=== PATIENT | female | born 1990 | race Caucasian/White ===

== ENCOUNTER → 2016-12-20 | Outpatient (CLI) | payer OTHER ==
[2016-12-20 09:31] LABS: CHLORIDE,CL 110 mmol/L (98-110); SODIUM,NA 140 mmol/L (136-146)
== END | disposition home or self-care (01) ==
LOC: MW.CHOBGYN 07:44
PROVIDERS: ATTEND Advanced Practice Midwife
DX: O13.9 Gestational [pregnancy-induced] hypertension without significant proteinuria, unspecified trimester (principal)
CPT/HCPCS: 36415; 80053; 82570; 82950; 84156; 84550; 85027; 86850

== ENCOUNTER → 2016-12-31 | Outpatient (CLI) | payer OTHER ==
[2016-12-31 09:06] LABS: CHLORIDE,CL 111 mmol/L (98-110); SODIUM,NA 139 mmol/L (136-146)
== END ==
LOC: MW.LAB 08:00
PROVIDERS: ATTEND Advanced Practice Midwife
DX: O13.9 Gestational [pregnancy-induced] hypertension without significant proteinuria, unspecified trimester (principal)
CPT/HCPCS: 36415; 80053; 82570; 84156; 85025

== ENCOUNTER 2017-02-12 19:38 | Observation (INO) | payer OTHER ==
[2017-02-12] MEDS ORDERED: Acetaminophen/oxyCODONE 325-5 MG Tab PO ONE (20:55)
[2017-02-12 22:00] LABS: CHLORIDE,CL 107 mmol/L (98-110); SODIUM,NA 136 mmol/L (136-146)
[2017-02-12] MEDS ORDERED: Acetaminophen/Butalbital/Caffeine 325-50-40 MG Tab PO ONE (22:09)
[2017-02-12] MEDS ORDERED: Ondansetron 4 MG Tab.DIS PO ONE (22:11)
[2017-02-13] MEDS: NIFEdipine 30 MG Tab.ER PO SCH (11:01)
--- NOTE | 2017-02-13 11:18 | US ---
EXAMINATION: Transabdominal obstetric ultrasound HISTORY: Positioning COMPARISON: 02/12/2017 TECHNIQUE: Grayscale and spectral Doppler images obtained. FINDINGS: There is a single live intrauterine noted in a cephalic position. The placenta i s anterior. heart rate is 131 bpm. IMPRESSION: Single live intrauterine in a cephalic position.
[2017-02-14] MEDS ORDERED: Misoprostol 200 MCG Tab PO PRN (08:58)
[2017-02-14] MEDS ORDERED: Sodium Chloride 0.9% 2.5 ML Syringe FLUSH PRN (08:58)
[2017-02-14] MEDS ORDERED: Butorphanol 1 MG/ML SDV IVPUSH PRN (08:58)
[2017-02-14] MEDS ORDERED: Lidocaine 1% 50 ML MDV INJECT PRN (08:58)
[2017-02-14] MEDS ORDERED: Terbutaline 1 MG/ML SDV SUBCUT PRN (08:58)
[2017-02-14] MEDS ORDERED: Sodium Chloride 0.9% 10 ML Syringe FLUSH PRN (08:58)
[2017-02-14] MEDS ORDERED: Nalbuphine 10 MG/1 ML Vial IVPUSH PRN ×2 (08:58→19:10)
[2017-02-14] MEDS ORDERED: Water For Irrigation,Sterile 1,000 ML Container IRR PRN (08:58)
[2017-02-14] MEDS ORDERED: Methylergonovine 0.2 MG/1 ML Amp IM PRN (08:58)
[2017-02-14] MEDS ORDERED: Carboprost Tromethamine 250 MCG/1 ML Amp IM PRN (08:58)
[2017-02-14] MEDS ORDERED: Lactated Ringers 1,000 ML IV SCH (09:00)
--- NOTE | 2017-02-14 09:21 | PCM.LDHP ---
L&D History of Present Illness - General Date of Service: 02/14/17 Admit Problem/Dx: Patient Status Order with Admit Dx/Problem 02/12/17 20:30 Patient Status [ADT] Routine 02/14/17 08:58 Patient Status [ADT] Routine Admission Diagnosis/Problem Admission Diagnosis/Problem 02/14/17 09:16 26 yo EDC 03/08/2017 36 6/7 wks, B+, Rubella equviocal, GBS positive, IOL due to symptomatic PIH, elevated BP 142/110 in clinic, proteinuria, and headache. Co-mngt with Dr Elizondo. 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: - Past Surgical History HEENT Surgical History: Reports: Oral Surgery Social & Family History - Family History Family Medical History: Noncontributory - Tobacco Use Smoking Status *Q: Never Smoker - Recreational Drug Use Recreational Drug Use: No H&P Review of Systems - Review of Systems: Review Of Systems: See Below General: Reports: No Symptoms HEENT: Reports: No Symptoms Pulmonary: Reports: No Symptoms Cardiovascular: Reports: No Symptoms Gastrointestinal: Reports: No Symptoms Genitourinary: Reports: No Symptoms Musculoskeletal: Reports: No Symptoms Skin: Reports: No Symptoms Psychiatric: Reports: No Symptoms Neurological: Reports: No Symptoms, Headache (improved with bedrest and Fioricet.) Hematologic/Lymphatic: Reports: No Symptoms Immunologic: Reports: No Symptoms L&D Exam - Exam Exam: See Below - Vital Signs Vital Signs: Last Vital Signs Temp Pulse Resp BP 132/78 02/13/17 11:01 Pulse Ox Weight: 99.337 kg - OB Specific Fundal Height In cm: 36 Movement: Active Heart Tones: Present Presentation: Vertex Estimated Weight: 3000 - Kelley Score Kelley Score Cervix Position: Anterior Kelley Score Consistency: Soft Kelley Score Effacement: 31-50% Kelley Score Dilation: 1-2 cm Kelley Score 's Station: -2 Kelley Score Total: 7 - Exam General: Alert, Oriented, Cooperative HEENT: Hearing Intact Lungs: Normal Respiratory Effort Abdomen: Soft (gravid) Rectal Exam: Deferred Genitourinary: Normal bimanual exam, Cervical dilitation (1cm) Back Exam: Full Range of Motion Extremities: Normal Inspection, Normal Pulses Skin: Warm, Dry, Intact Neurological: Cranial Nerves Intact, Normal Speech, Normal Tone Psychiatric: Alert, Normal Affect, Normal Mood - Patient Data Lab Results Last 24 hrs: Laboratory Results - last 24 hr 02/13/17 Range/Units 22:30 Ur Collection Duration 24 Urine Total Volume 3775 H (800-1800) Ur Total Protein Conc < 6.8 (0-14) mg/dL Ur Total Protein 24 Hr 256.7 mg/24HRS Result Diagrams: 02/12/17 21:05 02/12/17 21:05 - Problem List (1) Supervision of normal IUP (intrauterine ) in primigravida SNOMED Code(s): 08380710, 023203951, 495169161, 094334146 ICD Code: Z34.00 - ENCNTR FOR SUPRVSN OF NORMAL FIRST , UNSP TRIMESTER Status: Acute Priority: High Current Visit: Yes Qualifiers: Trimester: third trimester Qualified Code(s): Z34.03 - Encounter for supervision of normal first , third trimester (2) induced hypertension, delivered, current hospitalization SNOMED Code(s): 57272126 ICD Code: O13.4 - GESTATNL HTN WITHOUT SIGNIFICANT PROTEIN, COMP CHILDBIRTH Status: Acute Priority: High Current Visit: Yes Problem List Initiated/Reviewed/Updated: Yes Orders Last 24hrs: Active Orders 24 hr Category Date Time Status Patient Status [ADT] Routine ADT 02/14/17 08:58 Active Bedrest Bathroom Privileges [RC] ASDIRECTED Care 02/14/17 08:58 Active Communication Order [RC] ASDIRECTED Care 02/14/17 08:58 Active Communication Order [RC] ASDIRECTED Care 02/14/17 08:58 Active Communication Order [RC] ASDIRECTED Care 02/14/17 08:58 Active Heart Tones [RC] CONTINUOUS Care 02/14/17 08:58 Active Non Stress Test [RC] PER UNIT ROUTINE Care 02/14/17 08:58 Active May Shower [RC] ASDIRECTED Care 02/14/17 08:58 Active Notify Provider [RC] PRN Care 02/14/17 08:58 Active Notify Provider [RC] PRN Care 02/14/17 08:58 Active Notify Provider [RC] PRN Care 02/14/17 08:58 Active Notify Provider [RC] STAT Care 02/14/17 08:58 Active Oxygen Therapy [RC] ASDIRECTED Care 02/14/17 08:58 Active Peripheral IV Care [RC] . DIRECTED Care 02/14/17 08:58 Active Up ad Piedad [RC] ASDIRECTED Care 02/14/17 08:58 Active Vaginal Exam [RC] PRN Care 02/14/17 08:58 Active Vaginal Exam [RC] PRN Care 02/14/17 08:58 Active Vital Signs [RC] PER UNIT ROUTINE Care 02/14/17 08:58 Active Vital Signs [RC] PER UNIT ROUTINE Care 02/14/17 08:58 Active Regular Diet [DIET] Diet 02/13/17 Lunch Active CBC W/O DIFF,HEMOGRAM [HEME] Routine Lab 02/14/17 08:58 Ordered TYPE AND SCREEN [BBK] Routine Lab 02/14/17 08:58 Ordered Butorphanol [Stadol] Med 02/14/17 08:58 Active 1 mg IVPUSH Q1H PRN Carboprost Tromethamine [Hemabate DS] Med 02/14/17 08:58 Active 250 mcg IM ASDIRECTED PRN Lactated Ringers [Ringers, Lactated] 1,000 ml Med 02/14/17 09:00 Active IV ASDIRECTED Lidocaine 1% [Xylocaine 1%] Med 02/14/17 08:58 Active 50 ml INJECT .ONCE PRN Methylergonovine [Methergine] Med 02/14/17 08:58 Active 0.2 mg IM ASDIRECTED PRN Misoprostol [Cytotec] Med 02/14/17 08:58 Active 200 mcg PO .ONCE PRN Misoprostol [Cytotec] Med 02/14/17 10:00 Active 25 mcg VAG .ONCE Misoprostol [Cytotec] Med 02/14/17 14:00 Active 25 mcg VAG Q4H PRN NIFEdipine [Procardia XL] Med 02/13/17 11:00 Active 60 mg PO DAILY Nalbuphine [Nubain] Med 02/14/17 08:58 Active 10 mg IVPUSH Q1H PRN Oxytocin/Lactated Ringers [Pitocin in LR 30 Units/500 Med 02/14/17 20:30 Active ML] 30 unit in 500 ml IV ASDIRECTED Oxytocin/Lactated Ringers [Pitocin in LR 30 Units/500 Med 02/15/17 09:00 Active ML] 30 unit in 500 ml IV TITRATE Sodium Chloride 0.9% [Saline Flush] Med 02/14/17 08:58 Active 10 ml FLUSH ASDIRECTED PRN Sodium Chloride 0.9% [Saline Flush] Med 02/14/17 08:58 Active 2.5 ml FLUSH ASDIRECTED PRN Terbutaline [Brethine] Med 02/14/17 08:58 Active 0.25 mg SUBCUT ASDIRECTED PRN Water For Irrigation,Sterile [Sterile Water for Med 02/14/17 08:58 Active Irrigation] 1,000 ml IRR ASDIRECTED PRN Scalp Electrode [WOMSER] Per Unit Routine Oth 02/14/17 08:58 Ordered Medication Administration Instruction [OM.PC] Q3H Oth 02/14/17 09:00 Ordered Peripheral IV Insertion Adult [OM.PC] Routine Ot 02/14/17 08:58 Ordered Medication Orders Butorphanol Tartrate (Stadol) 1 mg IVPUSH Q1H PRN PRN Reason: Pain Carboprost Tromethamine (Hemabate Ds) 250 mcg IM ASDIRECTED PRN PRN Reason: Post Hemorrhage Lactated Ringer's (Ringers, Lactated) 1,000 mls @ 150 mls/hr IV ASDIRECTED GRACIELA Oxytocin/Lactated Ringer's (Pitocin In Lr 30 Units/500 Ml) 30 unit in 500 mls @ 500 mls/hr IV ASDIRECTED GRACIELA PRN Reason: 500 MUNITS/MIN Stop: 02/14/17 21:29 Oxytocin/Lactated Ringer's (Pitocin In Lr 30 Units/500 Ml) 30 unit in 500 mls @ 2 mls/hr IV TITRATE GRACIELA; 2 MUNITS/MIN PRN Reason: Protocol Lidocaine HCl (Xylocaine 1%) 50 ml INJECT .ONCE PRN PRN Reason: Laceration repair Methylergonovine Maleate (Methergine) 0.2 mg IM ASDIRECTED PRN PRN Reason: Post Hemorrhage Misoprostol (Cytotec) 200 mcg PO .ONCE PRN PRN Reason: Post Hemorrhage Misoprostol (Cytotec) 25 mcg VAG .ONCE GRACIELA Misoprostol (Cytotec) 25 mcg VAG Q4H PRN PRN Reason: Cervical Ripening Stop: 02/15/17 18:01 Nalbuphine HCl (Nubain) 10 mg IVPUSH Q1H PRN PRN Reason: Pain (severe 7-10) Stop: 02/14/17 10:59 Nifedipine (Procardia Xl) 60 mg PO DAILY GRACIELA Last Admin: 02/13/17 11:01 Dose: 60 mg Sodium Chloride (Saline Flush) 10 ml FLUSH ASDIRECTED PRN PRN Reason: Keep Vein Open Sodium Chloride (Saline Flush) 2.5 ml FLUSH ASDIRECTED PRN PRN Reason: Keep Vein Open Sterile Water (Sterile Water For Irrigation) 1,000 ml IRR ASDIRECTED PRN PRN Reason: delivery Terbutaline Sulfate (Brethine) 0.25 mg SUBCUT ASDIRECTED PRN PRN Reason: Tacysystole Assessment/Plan Comment:: IOL A: 26 yo EDC 03/08/2017 36 6/7 wks, B+, Rubella equviocal, GBS positive, IOL due to symptomatic PIH, elevated BP 142/110 in clinic, proteinuria, and headache. Co-mngt with Dr Elizondo. P: Admit to L&D, Cytotec per protocol then pitocin. Epidural prn, anticipate .
[2017-02-14] MEDS: Misoprostol 25 MCG (1/4 of 100 MCG) Tab PO SCH ×3 (10:13→17:56)
[2017-02-14] MEDS: Misoprostol 25 MCG (1/4 of 100 MCG) Tab VAG SCH ×2 (10:13→17:57)
[2017-02-14] MEDS: NIFEdipine 30 MG Tab.ER PO SCH ×2 (10:21→10:33)
[2017-02-14] MEDS ORDERED: Misoprostol 25 MCG (1/4 of 100 MCG) Tab VAG PRN (14:00)
[2017-02-14] MEDS ORDERED: Nalbuphine 20 MG/1 ML Amp IVPUSH PRN (19:13)
[2017-02-14] MEDS ORDERED: Nalbuphine 10 MG/1 ML Vial ONE (19:16)
[2017-02-14] MEDS ORDERED: Oxytocin/Lactated Ringers 30 UNIT/500 ML BAG IV SCH ×2 (20:30→22:30)
[2017-02-15] MEDS: NIFEdipine 30 MG Tab.ER PO SCH (08:57)
[2017-02-15 08:58] VITALS: BP 150/94
[2017-02-15] MEDS ORDERED: Oxytocin/Lactated Ringers 30 UNIT/500 ML BAG IV SCH (09:00)
== END 2017-02-15 14:00 | disposition home or self-care (01) ==
LOC: MW.OBCHECK 19:38 → MW.OB 19:42 → MW.OBCHECK 02-14 08:58 → MW.OB 02-14 08:58
PROVIDERS: ADMIT Obstetrics & Gynecology; ATTEND Obstetrics & Gynecology
DX: O13.4 Gestational [pregnancy-induced] hypertension without significant proteinuria, complicating childbirth (principal); Z3A.36 36 weeks gestation of pregnancy
CPT/HCPCS: 36415; 59025; 76815; 80053; 81003; 84156; 84550; 85025; 85027; 86850; 86900; 86901; 96361; 96374; A9270; G0378; J2300; J7120; 76816

== ENCOUNTER 2017-02-23 00:13 | Inpatient (IN) | payer OTHER ==
[2017-02-23] MEDS ORDERED: Terbutaline 1 MG/ML SDV SUBCUT PRN (21:38)
[2017-02-23] MEDS ORDERED: Sodium Chloride 0.9% 10 ML Syringe FLUSH PRN (21:38)
[2017-02-23] MEDS ORDERED: Misoprostol 200 MCG Tab PO PRN (21:38)
[2017-02-23] MEDS ORDERED: Methylergonovine 0.2 MG/1 ML Amp IM PRN (21:38)
[2017-02-23] MEDS ORDERED: Sodium Chloride 0.9% 2.5 ML Syringe FLUSH PRN (21:38)
[2017-02-23] MEDS ORDERED: Lidocaine 1% 50 ML MDV INJECT PRN (21:38)
[2017-02-23] MEDS ORDERED: Water For Irrigation,Sterile 1,000 ML Container IRR PRN (21:38)
[2017-02-23] MEDS ORDERED: Carboprost Tromethamine 250 MCG/1 ML Amp IM PRN (21:38)
[2017-02-23] MEDS ORDERED: Nalbuphine 10 MG/1 ML Vial IVPUSH PRN (21:38)
[2017-02-23] MEDS ORDERED: Oxytocin/Lactated Ringers 30 UNIT/500 ML BAG IV SCH ×2 (21:45)
[2017-02-23] MEDS ORDERED: Misoprostol 25 MCG (1/4 of 100 MCG) Tab VAG SCH (21:45)
[2017-02-23] MEDS ORDERED: Ampicillin 2 GM in Sodium Chloride 0.9% 100 ML IV ONE (22:00)
[2017-02-23] MEDS: Lactated Ringers 1,000 ML IV SCH (22:25)
[2017-02-23] MEDS: Misoprostol 25 MCG (1/4 of 100 MCG) Tab PO SCH (22:31)
[2017-02-23] MEDS: Misoprostol 25 MCG (1/4 of 100 MCG) Tab VAG PRN (22:37)
[2017-02-23 22:43] LABS: CHLORIDE,CL 108 mmol/L (98-110); SODIUM,NA 137 mmol/L (136-146)
[2017-02-24] MEDS: Misoprostol 25 MCG (1/4 of 100 MCG) Tab PO SCH ×2 (04:21→12:06)
[2017-02-24] MEDS: Misoprostol 25 MCG (1/4 of 100 MCG) Tab VAG PRN (04:21)
[2017-02-24] MEDS: Lactated Ringers 1,000 ML IV SCH ×4 (06:59→20:57)
--- NOTE | 2017-02-24 08:59 | PCM.LDHP ---
L&D History of Present Illness - General Date of Service: 02/24/17 Admit Problem/Dx: Patient Status Order with Admit Dx/Problem 02/23/17 21:38 Patient Status [ADT] Routine Admission Diagnosis/Problem Admission Diagnosis/Problem 02/24/17 08:54 26 yo EDC 03/08/2017 38 1/7wks, B=, R-equivocal, GBS pos, H/H 12.7/37.1, PLT 356, ALT/AST , RPCR 0.11, IOL due to CHTN w/PIH symptoms. 02/24/17 08:56 Source of Information: Patient History Limitations: Reports: No Limitations - History of Present Illness Improves with: Reports: None Worsens with: Reports: None Associated Symptoms: Reports: N - Related Data Allergies/Adverse Reactions: Allergies Allergy/AdvReac Type Severity Reaction Status Date / Time No Known Allergies Allergy Verified 02/12/17 20:29 Home Medications: Home Meds NIFEdipine [Procardia XL] 2 tab PO DAILY 02/13/17 [History] Past Medical History HEENT History: Reports: Other (See Below) Other HEENT History: Wearing eyeglasses for nearsightedness. 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 Social & Family History - Family History Family Medical History: Noncontributory HEENT: Reports: Cataract Cardiac: Reports: Arrhythmia, Heart Failure, Hypertension, Other (See Below) Respiratory: Reports: Sleep Apnea GI: Reports: None : Reports: Renal Calculus OBGYN: Reports: Musculoskeletal: Reports: Gout Neurological: Reports: Dementia Psychiatric: Reports: None Endocrine/Metabolic: Reports: Diabetes, type II Hematologic: Reports: None Immunologic: Reports: None Dermatologic: Reports: Eczema Oncologic: Reports: Pancreatic - Tobacco Use Smoking Status *Q: Never Smoker - Caffeine Use Caffeine Use: Reports: None - Recreational Drug Use Recreational Drug Use: No H&P Review of Systems - Review of Systems: Review Of Systems: See Below General: Reports: No Symptoms HEENT: Reports: No Symptoms Pulmonary: Reports: No Symptoms Cardiovascular: Reports: No Symptoms Gastrointestinal: Reports: No Symptoms Genitourinary: Reports: No Symptoms Musculoskeletal: Reports: No Symptoms Skin: Reports: No Symptoms Psychiatric: Reports: No Symptoms Neurological: Reports: No Symptoms Hematologic/Lymphatic: Reports: No Symptoms Immunologic: Reports: No Symptoms L&D Exam - Exam Exam: See Below - Vital Signs Vital Signs: Last Vital Signs Temp Pulse Resp BP 148/91 H 02/24/17 08:52 Pulse Ox Weight: 99.337 kg - OB Specific Contraction Intensity: Mild Movement: Active Heart Tones: Present Heart Tones per Min: 120 Heart Rate (FHR) Variability: Moderate (6-25 bmp) Presentation: Vertex - Kelley Score Kelley Score Cervix Position: Anterior Kelley Score Consistency: Soft Kelley Score Effacement: 51-70% Kelley Score Dilation: 1-2 cm Kelley Score 's Station: -2 Kelley Score Total: 8 - Exam General: Alert, Oriented, Cooperative HEENT: Hearing Intact Lungs: Normal Respiratory Effort Abdomen: Soft (gravid) Rectal Exam: Deferred Genitourinary: Normal bimanual exam, Cervical fluid (AROM clear) Back Exam: Full Range of Motion Extremities: Normal Inspection Skin: Warm Neurological: Cranial Nerves Intact Psychiatric: Alert, Normal Affect, Normal Mood - Patient Data Lab Results Last 24 hrs: Laboratory Results - last 24 hr 02/23/17 02/23/17 02/23/17 Range/Units 22:11 22:11 22:11 WBC 10.71 (4.0-11.0) K/uL RBC 4.32 (4.30-5.90) M/uL Hgb 12.7 (12.0-16.0) g/dL Hct 37.1 (36.0-46.0) % MCV 85.9 (80.0-98.0) fL MCH 29.4 (27.0-32.0) pg MCHC 34.2 (31.0-37.0) g/dL RDW Std Deviation 42.0 (28.0-62.0) fl RDW Coeff of Efrain 14 (11.0-15.0) % Plt Count 356 (150-400) K/uL MPV 9.90 (7.40-12.00) fL Nucleated RBC % 0.0 /100WBC Nucleated RBCs # 0 K/uL Sodium 137 (136-146) mmol/L Potassium 3.8 (3.5-5.1) mmol/L Chloride 108 (98-110) mmol/L Carbon Dioxide 20 L (21-31) mmol/L BUN 9 (6.0-23.0) mg/dL Creatinine 0.7 (0.6-1.5) mg/dL Est Cr Clr Drug Dosing 117.39 mL/min Estimated GFR (MDRD) > 60.0 ml/min Glucose 113 H (60-110) mg/dL Uric Acid (2.1-6.2) mg/dL Calcium 8.5 L (8.8-10.8) mg/dL Total Bilirubin 0.4 (0.1-1.5) mg/dL AST 16 (5-40) IU/L ALT 18 (8-54) IU/L Alkaline Phosphatase 194 H (40-150) Total Protein 6.3 (6.0-8.0) g/dL Albumin 3.2 L (3.5-5.0) g/dL Globulin 3.1 (2.0-3.5) g/dL Albumin/Globulin Ratio 1.0 L (1.3-2.8) Ur Random Creatinine mg/dL U Random Total Protein mg/dL Protein/Creatinin Ratio Blood Type B POSITIVE Antibody Screen NEGATIVE 02/23/17 02/23/17 Range/Units 22:11 23:00 WBC (4.0-11.0) K/uL RBC (4.30-5.90) M/uL Hgb (12.0-16.0) g/dL Hct (36.0-46.0) % MCV (80.0-98.0) fL MCH (27.0-32.0) pg MCHC (31.0-37.0) g/dL RDW Std Deviation (28.0-62.0) fl RDW Coeff of Efrain (11.0-15.0) % Plt Count (150-400) K/uL MPV (7.40-12.00) fL Nucleated RBC % /100WBC Nucleated RBCs # K/uL Sodium (136-146) mmol/L Potassium (3.5-5.1) mmol/L Chloride (98-110) mmol/L Carbon Dioxide (21-31) mmol/L BUN (6.0-23.0) mg/dL Creatinine (0.6-1.5) mg/dL Est Cr Clr Drug Dosing mL/min Estimated GFR (MDRD) ml/min Glucose (60-110) mg/dL Uric Acid 4.6 (2.1-6.2) mg/dL Calcium (8.8-10.8) mg/dL Total Bilirubin (0.1-1.5) mg/dL AST (5-40) IU/L ALT (8-54) IU/L Alkaline Phosphatase (40-150) Total Protein (6.0-8.0) g/dL Albumin (3.5-5.0) g/dL Globulin (2.0-3.5) g/dL Albumin/Globulin Ratio (1.3-2.8) Ur Random Creatinine 154.3 mg/dL U Random Total Protein 17.6 mg/dL Protein/Creatinin Ratio 0.1 Blood Type Antibody Screen Result Diagrams: 02/23/17 22:11 02/23/17 22:11 - Problem List (1) induced hypertension, delivered, current hospitalization SNOMED Code(s): 35394449 ICD Code: O13.4 - GESTATNL HTN WITHOUT SIGNIFICANT PROTEIN, COMP CHILDBIRTH Status: Acute Priority: High Current Visit: No (2) Supervision of normal IUP (intrauterine ) in primigravida SNOMED Code(s): 87902165, 016856435, 155505919, 927218294 ICD Code: Z34.00 - ENCNTR FOR SUPRVSN OF NORMAL FIRST , UNSP TRIMESTER Status: Acute Priority: High Current Visit: No Qualifiers: Trimester: third trimester Problem List Initiated/Reviewed/Updated: Yes Orders Last 24hrs: Active Orders 24 hr Category Date Time Status Patient Status [ADT] Routine ADT 02/23/17 21:38 Active Bedrest Bathroom Privileges [RC] ASDIRECTED Care 02/23/17 21:38 Active Communication Order [RC] ASDIRECTED Care 02/23/17 21:38 Active Communication Order [RC] ASDIRECTED Care 02/23/17 21:38 Active Communication Order [RC] ASDIRECTED Care 02/23/17 21:38 Active Heart Tones [RC] CONTINUOUS Care 02/23/17 21:38 Active Non Stress Test [RC] PER UNIT ROUTINE Care 02/23/17 21:38 Active May Shower [RC] ASDIRECTED Care 02/23/17 21:38 Active Notify Provider [RC] PRN Care 02/23/17 21:38 Active Notify Provider [RC] PRN Care 02/23/17 21:38 Active Notify Provider [RC] PRN Care 02/23/17 21:38 Active Notify Provider [RC] STAT Care 02/23/17 21:38 Active Oxygen Therapy [RC] ASDIRECTED Care 02/23/17 21:38 Active Up ad Piedad [RC] ASDIRECTED Care 02/23/17 21:38 Active Vaginal Exam [RC] PRN Care 02/23/17 21:38 Active Vaginal Exam [RC] PRN Care 02/23/17 21:38 Active Vital Signs [RC] PER UNIT ROUTINE Care 02/23/17 21:38 Active Vital Signs [RC] PER UNIT ROUTINE Care 02/23/17 21:38 Active Regular Diet [DIET] Diet 02/24/17 Breakfast Active Ampicillin 1 gm Med 02/24/17 02:00 Active Sodium Chloride 0.9% [Normal Saline] 50 ml IV Q4H Ampicillin 2 gm Med 02/24/17 09:00 Active Sodium Chloride 0.9% [Normal Saline] 100 ml IV ONETIME Butorphanol [Stadol] Med 02/23/17 21:38 Active 1 mg IVPUSH Q1H PRN Carboprost Tromethamine [Hemabate DS] Med 02/23/17 21:38 Active 250 mcg IM ASDIRECTED PRN Lactated Ringers [Ringers, Lactated] 1,000 ml Med 02/23/17 21:45 Active IV ASDIRECTED Lidocaine 1% [Xylocaine 1%] Med 02/23/17 21:38 Active 50 ml INJECT .ONCE PRN Methylergonovine [Methergine] Med 02/23/17 21:38 Active 0.2 mg IM ASDIRECTED PRN Misoprostol [Cytotec] Med 02/23/17 21:38 Active 200 mcg PO .ONCE PRN Misoprostol [Cytotec] Med 02/23/17 22:00 Active 25 mcg PO Q4H Misoprostol [Cytotec] Med 02/23/17 21:45 Active 25 mcg VAG .ONCE Misoprostol [Cytotec] Med 02/23/17 21:38 Active 25 mcg VAG Q4H PRN NIFEdipine [Procardia XL] Med 02/24/17 09:00 Active 60 mg PO DAILY Oxytocin/Lactated Ringers [Pitocin in LR 30 Units/500 Med 02/23/17 21:45 Active ML] 30 unit in 500 ml IV TITRATE Sodium Chloride 0.9% [Saline Flush] Med 02/23/17 21:38 Active 10 ml FLUSH ASDIRECTED PRN Sodium Chloride 0.9% [Saline Flush] Med 02/23/17 21:38 Active 2.5 ml FLUSH ASDIRECTED PRN Terbutaline [Brethine] Med 02/23/17 21:38 Active 0.25 mg SUBCUT ASDIRECTED PRN Water For Irrigation,Sterile [Sterile Water for Med 02/23/17 21:38 Active Irrigation] 1,000 ml IRR ASDIRECTED PRN Scalp Electrode [WOMSER] Per Unit Routine Ot 02/23/17 21:38 Ordered Medication Administration Instruction [OM.PC] Q3H Oth 02/23/17 21:45 Ordered Peripheral IV Insertion Adult [OM.PC] Routine Oth 02/23/17 21:38 Ordered Resuscitation Status Routine Resus Stat 02/23/17 21:38 Ordered Medication Orders Butorphanol Tartrate (Stadol) 1 mg IVPUSH Q1H PRN PRN Reason: Pain Carboprost Tromethamine (Hemabate Ds) 250 mcg IM ASDIRECTED PRN PRN Reason: Post Hemorrhage Lactated Ringer's (Ringers, Lactated) 1,000 mls @ 150 mls/hr IV ASDIRECTED GRACIELA Last Admin: 02/24/17 06:59 Dose: 150 mls/hr Infusion: 02/24/17 05:06 Dose: 150 mls/hr Admin: 02/23/17 22:25 Dose: 150 mls/hr Oxytocin/Lactated Ringer's (Pitocin In Lr 30 Units/500 Ml) 30 unit in 500 mls @ 2 mls/hr IV TITRATE GRACIELA; 2 MUNITS/MIN PRN Reason: Protocol Ampicillin Sodium 1 gm/ Sodium (Chloride) 50 mls @ 100 mls/hr IV Q4H GRACIELA Ampicillin Sodium 2 gm/ Sodium (Chloride) 100 mls @ 200 mls/hr IV ONETIME ONE Stop: 02/24/17 09:29 Lidocaine HCl (Xylocaine 1%) 50 ml INJECT .ONCE PRN PRN Reason: Laceration repair Methylergonovine Maleate (Methergine) 0.2 mg IM ASDIRECTED PRN PRN Reason: Post Hemorrhage Misoprostol (Cytotec) 200 mcg PO .ONCE PRN PRN Reason: Post Hemorrhage Misoprostol (Cytotec) 25 mcg VAG .ONCE GRACIELA Misoprostol (Cytotec) 25 mcg VAG Q4H PRN PRN Reason: Cervical Ripening Stop: 02/25/17 01:39 Last Admin: 02/24/17 04:21 Dose: 25 mcg Admin: 02/23/17 22:37 Dose: 25 mcg Misoprostol (Cytotec) 25 mcg PO Q4H [facility] Last Admin: 02/24/17 04:21 Dose: 25 mcg Admin: 02/23/17 22:31 Dose: 25 mcg Nifedipine (Procardia Xl) 60 mg PO DAILY [facility] Last Admin: 02/24/17 08:52 Dose: 60 mg Sodium Chloride (Saline Flush) 10 ml FLUSH ASDIRECTED PRN PRN Reason: Keep Vein Open Sodium Chloride (Saline Flush) 2.5 ml FLUSH ASDIRECTED PRN PRN Reason: Keep Vein Open Sterile Water (Sterile Water For Irrigation) 1,000 ml IRR ASDIRECTED PRN PRN Reason: delivery Terbutaline Sulfate (Brethine) 0.25 mg SUBCUT ASDIRECTED PRN PRN Reason: Tacysystole Assessment/Plan Comment:: IOL A: 26 yo EDC 03/08/2017 38 1/7wks, B=, R-equivocal, GBS pos, H/H 12.7/37.1, PLT 356, ALT/AST 16/18, RPCR 0.11, IOL due to CHTN w/PIH symptoms. P: Admit for IOL, cytotec per protocol, AROM clear fluid, antibiotics for GBS pos, Procardia XL 60mg for BP, start pitocin prn. anticipate .
[2017-02-24] MEDS ORDERED: NIFEdipine 30 MG Tab.ER PO SCH (09:00)
[2017-02-24] MEDS ORDERED: Ampicillin 2 GM in Sodium Chloride 0.9% 100 ML IV ONE (09:00)
[2017-02-24] MEDS: Butorphanol 1 MG/ML SDV IVPUSH PRN ×2 (11:01→12:32)
[2017-02-24] MEDS: Ampicillin 1 GM in Sodium Chloride 0.9% 50 ML IV SCH ×4 (12:06→21:39)
[2017-02-24] MEDS ORDERED: Ropivacaine 0.2% 2 MG/ML 20 ML SDV ONE (14:05)
--- NOTE | 2017-02-24 14:30 | PCM.PREANE ---
Preanesthetic Assessment - Anesthesia/Transfusion/Family Hx Anesthesia History: Prior Anesthesia Without Reaction Family History of Anesthesia Reaction: No - Review of Systems Cardiovascular: Other (PIH- reason for induction) Other: Reports: None - Physical Assessment Blood Pressure: 148/91 Vital Signs: Last Vital Signs Temp Pulse Resp BP 148/91 H 02/24/17 08:52 Pulse Ox Height: 5 ft 7 in Weight: 99.337 kg ASA Class: 2 Mental Status: Alert & Oriented x3 Airway Class: Mallampati = 1 Dentition: Reports: Normal Dentition Thyro-Mental Finger Breadths: 3 Mouth Opening Finger Breadths: 3 ROM/Head Extension: Full - Lab Values: Laboratory Last Values WBC 10.71 K/uL (4.0-11.0) 02/23/17 22:11 RBC 4.32 M/uL (4.30-5.90) 02/23/17 22:11 Hgb 12.7 g/dL (12.0-16.0) 02/23/17 22:11 Hct 37.1 % (36.0-46.0) 02/23/17 22:11 MCV 85.9 fL (80.0-98.0) 02/23/17 22:11 MCH 29.4 pg (27.0-32.0) 02/23/17 22:11 MCHC 34.2 g/dL (31.0-37.0) 02/23/17 22:11 RDW Std Deviation 42.0 fl (28.0-62.0) 02/23/17 22:11 RDW Coeff of Efrain 14 % (11.0-15.0) 02/23/17 22:11 Plt Count 356 K/uL (150-400) 02/23/17 22:11 MPV 9.90 fL (7.40-12.00) 02/23/17 22:11 Nucleated RBC % 0.0 /100WBC 02/23/17 22:11 Nucleated RBCs # 0 K/uL 02/23/17 22:11 Sodium 137 mmol/L (136-146) 02/23/17 22:11 Potassium 3.8 mmol/L (3.5-5.1) 02/23/17 22:11 Chloride 108 mmol/L (98-110) 02/23/17 22:11 Carbon Dioxide 20 mmol/L (21-31) L 02/23/17 22:11 BUN 9 mg/dL (6.0-23.0) 02/23/17 22:11 Creatinine 0.7 mg/dL (0.6-1.5) 02/23/17 22:11 Est Cr Clr Drug Dosing 117.39 mL/min 02/23/17 22:11 Estimated GFR (MDRD) > 60.0 ml/min 02/23/17 22:11 Glucose 113 mg/dL (60-110) H 02/23/17 22:11 Uric Acid 4.6 mg/dL (2.1-6.2) 02/23/17 22:11 Calcium 8.5 mg/dL (8.8-10.8) L 02/23/17 22:11 Total Bilirubin 0.4 mg/dL (0.1-1.5) 02/23/17 22:11 AST 16 IU/L (5-40) 02/23/17 22:11 ALT 18 IU/L (8-54) 02/23/17 22:11 Alkaline Phosphatase 194 (40-150) H 02/23/17 22:11 Total Protein 6.3 g/dL (6.0-8.0) 02/23/17 22:11 Albumin 3.2 g/dL (3.5-5.0) L 02/23/17 22:11 Globulin 3.1 g/dL (2.0-3.5) 02/23/17 22:11 Albumin/Globulin Ratio 1.0 (1.3-2.8) L 02/23/17 22:11 Ur Random Creatinine 154.3 mg/dL 02/23/17 23:00 U Random Total Protein 17.6 mg/dL 02/23/17 23:00 Protein/Creatinin Ratio 0.1 02/23/17 23:00 Blood Type B POSITIVE 02/23/17 22:11 Antibody Screen NEGATIVE 02/23/17 22:11 - Allergies Allergies/Adverse Reactions: Allergies Allergy/AdvReac Type Severity Reaction Status Date / Time No Known Allergies Allergy Verified 02/12/17 20:29 - Blood Blood Available: Yes Product(s) Available: PRBC - Acknowledgements Anesthesia Type Planned: Epidural Pt an Appropriate Candidate for the Planned Anesthesia: Yes Alternatives and Risks of Anesthesia Discussed w Pt/Guardian: Yes Pt/Guardian Understands and Agrees with Anesthesia Plan: Yes PreAnesthesia Questionnaire HEENT History: Reports: Other (See Below) Other HEENT History: Wearing eyeglasses for nearsightedness. Gastrointestinal History: Reports: GERD [employer] History: Reports: - Infectious Disease History Infectious Disease History: Reports: Chicken Pox - Past Surgical History HEENT Surgical History: Reports: Oral Surgery, Other (See Below) Other HEENT Surgeries/Procedures: tubes inserted inside both ears. - SUBSTANCE USE Smoking Status *Q: Never Smoker Recreational Drug Use History: No - HOME MEDS Home Medications: Home Meds NIFEdipine [Procardia XL] 2 tab PO DAILY 02/13/17 [History] - CURRENT (IN HOUSE) MEDS Current Meds: Current Medications Butorphanol Tartrate (Stadol) 1 mg IVPUSH Q1H PRN PRN Reason: Pain Last Admin: 02/24/17 12:32 Dose: 1 mg Carboprost Tromethamine (Hemabate Ds) 250 mcg IM ASDIRECTED PRN PRN Reason: Post Hemorrhage Lactated Ringer's (Ringers, Lactated) 1,000 mls @ 150 mls/hr IV ASDIRECTED GRACIELA Last Admin: 02/24/17 13:44 Dose: 999 mls/hr Oxytocin/Lactated Ringer's (Pitocin In Lr 30 Units/500 Ml) 30 unit in 500 mls @ 2 mls/hr IV TITRATE GRACIELA; 2 MUNITS/MIN PRN Reason: Protocol Ampicillin Sodium 1 gm/ Sodium (Chloride) 50 mls @ 100 mls/hr IV Q4H GRACIELA Last Admin: 02/24/17 13:20 Dose: 100 mls/hr Lidocaine HCl (Xylocaine 1%) 50 ml INJECT .ONCE PRN PRN Reason: Laceration repair Methylergonovine Maleate (Methergine) 0.2 mg IM ASDIRECTED PRN PRN Reason: Post Hemorrhage Misoprostol (Cytotec) 200 mcg PO .ONCE PRN PRN Reason: Post Hemorrhage Misoprostol (Cytotec) 25 mcg VAG .ONCE GRACIELA Misoprostol (Cytotec) 25 mcg VAG Q4H PRN PRN Reason: Cervical Ripening Stop: 02/25/17 01:39 Last Admin: 02/24/17 04:21 Dose: 25 mcg Misoprostol (Cytotec) 25 mcg PO Q4H GRACIELA Last Admin: 02/24/17 12:06 Dose: Not Given Nifedipine (Procardia Xl) 60 mg PO DAILY GRACIELA Last Admin: 02/24/17 08:52 Dose: 60 mg Sodium Chloride (Saline Flush) 10 ml FLUSH ASDIRECTED PRN PRN Reason: Keep Vein Open Sodium Chloride (Saline Flush) 2.5 ml FLUSH ASDIRECTED PRN PRN Reason: Keep Vein Open Sterile Water (Sterile Water For Irrigation) 1,000 ml IRR ASDIRECTED PRN PRN Reason: delivery Terbutaline Sulfate (Brethine) 0.25 mg SUBCUT ASDIRECTED PRN PRN Reason: Tacysystole Discontinued Medications Ampicillin Sodium 2 gm/ Sodium (Chloride) 100 mls @ 200 mls/hr IV ONETIME ONE Stop: 02/23/17 22:29 Last Admin: 02/24/17 12:04 Dose: Not Given Oxytocin/Lactated Ringer's (Pitocin In Lr 30 Units/500 Ml) 30 unit in 500 mls @ 999 mls/hr IV TITRATE GRACIELA; 999 MUNITS/MIN PRN Reason: Protocol Stop: 02/23/17 22:16 Ampicillin Sodium 2 gm/ Sodium (Chloride) 100 mls @ 200 mls/hr IV ONETIME ONE Stop: 02/24/17 09:29 Last Admin: 02/24/17 09:08 Dose: 200 mls/hr Ropivacaine/Fentanyl/NS (Fentanyl 2 Mcg-Ropiv 0.2%-Ns) Confirm Administered Dose 100 mls @ as directed .ROUTE .STK-MED ONE Stop: 02/24/17 14:05 Nalbuphine HCl (Nubain) 10 mg IVPUSH Q1H PRN PRN Reason: Pain (severe 7-10) Stop: 02/23/17 23:39 Ropivacaine (Naropin 0.2%) Confirm Administered Dose 20 ml .ROUTE .STK-MED ONE Stop: 02/24/17 14:06
[2017-02-24] MEDS ORDERED: Oxytocin/Lactated Ringers 30 UNIT/500 ML BAG IV SCH (15:45)
--- NOTE | 2017-02-25 00:37 | PCM.DEL ---
L & D Note - General Info Date of Service: 02/25/17 Mother's Due Date: 03/08/17 - Delivery Note Labor: induced by oxytocin Cervical Ripening Method: Misoprostil Delivery Outcome: Livebirth Delivery Method: Spontaneous Vaginal Delivery Delivery Mode: Spontaneous Presentation: Vertex Nuchal Cord: None Anesthesia Type: Epidural Amniotic Fluid Description: Clear Episiotomy Type: None Laceration: 1st degree, perineal Suture type: vicryl Suture size: 3-0 Placenta: intact, spontaneous Estimated Blood Loss: 150 Resuscitation Needed: Yes : Warmed Score 1 min: 8 Score 5 min: 9 Second Stage Interventions: Reports: Pushing Effectively Delivery Comments (Free Text/Narrative):: of viable female over intact perineum. Head delivered, shoulders and body followed easily. to mothers abdomen with RN at bs for eval. Delayed cord clamping. Pitocin to IVF. Cord clamped x2 and cut by FOB. Placenta delivered grossly intact. Inspection noted 1st degree perineal lac that was repaired in the usual manor with 3-0 laila. EBL 150cc, APGARS 8/9, Wt: pending. Counts correct. Mother and baby left in stable condition for recovery. Induction Criteria - Kelley Score Kelley Score Dilation: 1-2 cm Kelley Score Effacement: 40-50% Kelley Score 's Station: -2 Kelley Score Consistency: Soft Kelley Score Cervix Position: Posterior Kelley Score Total: 5 Kelley Score Presenting Part: Reports: Cephalic - Induction Gestational Age >/= 39 wks: No Medical indication: CHTN with PIH symptoms Estimated pelvis: Reports: Adequate Reassuring monitoring strip: Yes Absence of tachy systole: Yes - General Info Date of Service: 02/25/17 Functional Status: Reports: pain controlled, tolerating diet - Review of Systems General: Reports: No Symptoms HEENT: Reports: no symptoms Pulmonary: Reports: no symptoms Cardiovascular: Reports: No Symptoms Gastrointestinal: Reports: No symptoms Genitourinary: Reports: no symptoms Musculoskeletal: Reports: no symptoms Skin: Reports: no symptoms Neurological: Reports: No Symptoms Psychiatric: Reports: no symptoms - Patient Data Vitals - most recent: Last Vital Signs Temp Pulse Resp BP 148/91 H 02/24/17 14:30 Pulse Ox Weight - most recent: 99.337 kg Med Orders - Current: Current Medications Butorphanol Tartrate (Stadol) 1 mg IVPUSH Q1H PRN PRN Reason: Pain Last Admin: 02/24/17 12:32 Dose: 1 mg Carboprost Tromethamine (Hemabate Ds) 250 mcg IM ASDIRECTED PRN PRN Reason: Post Hemorrhage Lactated Ringer's (Ringers, Lactated) 1,000 mls @ 150 mls/hr IV ASDIRECTED GRACIELA Last Admin: 02/24/17 20:57 Dose: 125 mls/hr Oxytocin/Lactated Ringer's (Pitocin In Lr 30 Units/500 Ml) 30 unit in 500 mls @ 2 mls/hr IV TITRATE GRACIELA; 2 MUNITS/MIN PRN Reason: Protocol Ampicillin Sodium 1 gm/ Sodium (Chloride) 50 mls @ 100 mls/hr IV Q4H GRACIELA Last Admin: 02/24/17 21:39 Dose: 100 mls/hr Oxytocin/Lactated Ringer's (Pitocin In Lr 30 Units/500 Ml) 30 unit in 500 mls @ 2 mls/hr IV TITRATE GRACIELA; 2 MUNITS/MIN PRN Reason: Protocol Last Titration: 02/24/17 19:42 Dose: 6 munits/min, 6 mls/hr Lidocaine HCl (Xylocaine 1%) 50 ml INJECT .ONCE PRN PRN Reason: Laceration repair Methylergonovine Maleate (Methergine) 0.2 mg IM ASDIRECTED PRN PRN Reason: Post Hemorrhage Misoprostol (Cytotec) 200 mcg PO .ONCE PRN PRN Reason: Post Hemorrhage Misoprostol (Cytotec) 25 mcg VAG .ONCE GRACIELA Misoprostol (Cytotec) 25 mcg VAG Q4H PRN PRN Reason: Cervical Ripening Stop: 02/25/17 01:39 Last Admin: 02/24/17 04:21 Dose: 25 mcg Misoprostol (Cytotec) 25 mcg PO Q4H GRACIELA Last Admin: 02/24/17 12:06 Dose: Not Given Nifedipine (Procardia Xl) 60 mg PO DAILY [facility] Last Admin: 02/24/17 08:52 Dose: 60 mg Sodium Chloride (Saline Flush) 10 ml FLUSH ASDIRECTED PRN PRN Reason: Keep Vein Open Sodium Chloride (Saline Flush) 2.5 ml FLUSH ASDIRECTED PRN PRN Reason: Keep Vein Open Sterile Water (Sterile Water For Irrigation) 1,000 ml IRR ASDIRECTED PRN PRN Reason: delivery Terbutaline Sulfate (Brethine) 0.25 mg SUBCUT ASDIRECTED PRN PRN Reason: Tacysystole Discontinued Medications Ampicillin Sodium 2 gm/ Sodium (Chloride) 100 mls @ 200 mls/hr IV ONETIME ONE Stop: 02/23/17 22:29 Last Admin: 02/24/17 12:04 Dose: Not Given Oxytocin/Lactated Ringer's (Pitocin In Lr 30 Units/500 Ml) 30 unit in 500 mls @ 999 mls/hr IV TITRATE GRACIELA; 999 MUNITS/MIN PRN Reason: Protocol Stop: 02/23/17 22:16 Ampicillin Sodium 2 gm/ Sodium (Chloride) 100 mls @ 200 mls/hr IV ONETIME ONE Stop: 02/24/17 09:29 Last Admin: 02/24/17 09:08 Dose: 200 mls/hr Ropivacaine/Fentanyl/NS (Fentanyl 2 Mcg-Ropiv 0.2%-Ns) Confirm Administered Dose 100 mls @ as directed .ROUTE .STK-MED ONE Stop: 02/24/17 14:05 Nalbuphine HCl (Nubain) 10 mg IVPUSH Q1H PRN PRN Reason: Pain (severe 7-10) Stop: 02/23/17 23:39 Ropivacaine (Naropin 0.2%) Confirm Administered Dose 20 ml .ROUTE .STK-MED ONE Stop: 02/24/17 14:06 - Exam General: alert, oriented, cooperative, no acute distress Lungs: Normal respiratory effort Abdomen: soft (Female) Exam: Normal Bimanual Exam, Vaginal Bleeding, Vaginal Lesions (with repari) Back Exam: Normal Inspection Extremities: no edema, no tenderness/swelling Skin: warm, dry, intact Wound/Incisions: healing well Neurological: no new focal deficit Psy/Mental Status: alert, normal affect, normal mood - Problem List & Annotations (1) induced hypertension, delivered, current hospitalization SNOMED Code(s): 46627042 Code(s): O13.4 - GESTATNL HTN WITHOUT SIGNIFICANT PROTEIN, COMP CHILDBIRTH Status: Acute Priority: High Current Visit: No (2) Supervision of normal IUP (intrauterine ) in primigravida SNOMED Code(s): 07735492, 548136110, 617597027, 693150647 Code(s): Z34.00 - ENCNTR FOR SUPRVSN OF NORMAL FIRST , UNSP TRIMESTER Status: Acute Priority: High Current Visit: No Qualifiers: Trimester: third trimester (3) (normal spontaneous vaginal delivery) SNOMED Code(s): 76178720 Code(s): O80 - ENCOUNTER FOR FULL-TERM UNCOMPLICATED DELIVERY Status: Acute Priority: Medium Current Visit: Yes - Problem List Review Problem List Initiated/Reviewed/Updated: Yes - My Orders Last 24 Hours: My Active Orders 02/24/17 02:00 Ampicillin 1 gm Sodium Chloride 0.9% [Normal Saline] 50 ml IV Q4H 02/24/17 09:00 NIFEdipine [Procardia XL] 60 mg PO DAILY 02/24/17 15:45 Oxytocin/Lactated Ringers [Pitocin in LR 30 Units/500 ML] 30 unit in 500 ml IV TITRATE 02/24/17 Breakfast Regular Diet [DIET] - Assessment Assessment:: A: of viable girl. APGARS 8/9. EBL 150cc 1st degree lac with repair, stable - Plan Plan:: IOL A: 26 yo EDC 03/08/2017 38 1/7wks, B=, R-equivocal, GBS pos, H/H 12.7/37.1, PLT 356, ALT/AST 16/18, RPCR 0.11, IOL due to CHTN w/PIH symptoms. P: Admit for IOL, cytotec per protocol, AROM clear fluid, antibiotics for GBS pos, Procardia XL 60mg for BP, start pitocin prn. anticipate . Post P: routine pp plan of care.
[2017-02-25] MEDS ORDERED: Witch Hazel Medicated Pads 40/Jar TOP PRN (00:43)
[2017-02-25] MEDS ORDERED: Benzocaine/Menthol 20%-0.5% Spray 78 GM Cannister TOP PRN (00:43)
[2017-02-25] MEDS ORDERED: Docusate Sodium 100 MG Cap PO PRN (00:43)
[2017-02-25] MEDS ORDERED: Ibuprofen 800 MG Tab PO PRN (00:43)
[2017-02-25] MEDS ORDERED: Ibuprofen 400 MG Tab PO PRN (00:43)
[2017-02-25] MEDS ORDERED: Acetaminophen 500 MG Tab PO PRN ×2 (00:43)
[2017-02-25] MEDS ORDERED: oxyCODONE 5 MG Tab PO PRN (00:43)
[2017-02-25] MEDS ORDERED: Bisacodyl 10 MG Supp RECTAL PRN (00:43)
[2017-02-25] MEDS ORDERED: Lanolin 100% Cream 7 GM Tube TOP PRN (00:43)
[2017-02-25] MEDS ORDERED: NIFEdipine 30 MG Tab.ER ONE (09:08)
[2017-02-25] MEDS: NIFEdipine 30 MG Tab.ER PO SCH (09:12)
--- NOTE | 2017-02-25 10:33 | PCM48HPAN ---
Post Anesthesia Note - EVALUATION WITHIN 48HRS OF ANESTHETIC Vital Signs in Normal Range: Yes Patient Participated in Evaluation: Yes Respiratory Function Stable: Yes Airway Patent: Yes Cardiovascular Function Stable: Yes Hydration Status Stable: Yes Pain Control Satisfactory: Yes Nausea and Vomiting Control Satisfactory: Yes Mental Status Recovered: Yes
--- NOTE | 2017-02-25 10:49 | PCM.PNPP ---
- General Info Date of Service: 02/25/17 Admission Dx/Problem (Free Text): Patient Status Order with Admit Dx/Problem 02/23/17 21:38 Patient Status [ADT] Routine Admission Diagnosis/Problem Admission Diagnosis/Problem 02/24/17 08:54 26 yo EDC 03/08/2017 38 1/7wks, B=, R-equivocal, GBS pos, H/H 12.7/37.1, PLT 356, ALT/AST , RPCR 0.11, IOL due to CHTN w/PIH symptoms. 02/24/17 08:56 Functional Status: Reports: pain controlled, tolerating diet, ambulating, urinating - Review of Systems General: Reports: No Symptoms HEENT: Reports: no symptoms Pulmonary: Reports: no symptoms Cardiovascular: Reports: No Symptoms Gastrointestinal: Reports: No symptoms Genitourinary: Reports: no symptoms Musculoskeletal: Reports: no symptoms Skin: Reports: no symptoms Neurological: Reports: No Symptoms Psychiatric: Reports: no symptoms - General Info Date of Service: 02/25/17 - Patient Data Vital Signs - most recent: Last Vital Signs Temp 36.7 C 02/25/17 08:00 Pulse 91 02/25/17 08:00 Resp 18 02/25/17 08:00 BP 152/94 H 02/25/17 09:12 Pulse Ox 98 02/25/17 08:00 Weight - most recent: 99.337 kg Med Orders - Current: Current Medications Acetaminophen (Tylenol Extra Strength) 500 mg PO Q4H PRN PRN Reason: Pain Acetaminophen (Tylenol Extra Strength) 1,000 mg PO Q4H PRN PRN Reason: Pain Benzocaine/Menthol (Dermoplast Pain Relief 20%-0.5% [place]) 78 gm TOP ASDIRECTED PRN PRN Reason: Perineal Comfort Measure Last Admin: 02/25/17 08:28 Dose: 1 can Bisacodyl (Dulcolax) 10 mg RECTAL .ONCE PRN PRN Reason: Constipation Docusate Sodium (Colace) 100 mg PO BID PRN PRN Reason: Constipation Last Admin: 02/25/17 08:28 Dose: 100 mg Emollient Ointment (Lansinoh Hpa) 0 gm TOP ASDIRECTED PRN PRN Reason: Sore Nipples Ibuprofen (Motrin) 400 mg PO Q4H PRN PRN Reason: Pain Ibuprofen (Motrin) 800 mg PO Q6H PRN PRN Reason: Pain Last Admin: 02/25/17 08:28 Dose: 800 mg Nifedipine (Procardia Xl) 60 mg PO DAILY GRACIELA Last Admin: 02/25/17 09:12 Dose: 60 mg Oxycodone HCl (Oxycodone) 5 mg PO Q2H PRN PRN Reason: Pain Witch Maggie (Tucks) 1 pad TOP ASDIRECTED PRN PRN Reason: comfort care Discontinued Medications Butorphanol Tartrate (Stadol) 1 mg IVPUSH Q1H PRN PRN Reason: Pain Last Admin: 02/24/17 12:32 Dose: 1 mg Carboprost Tromethamine (Hemabate Ds) 250 mcg IM ASDIRECTED PRN PRN Reason: Post Hemorrhage Ampicillin Sodium 2 gm/ Sodium (Chloride) 100 mls @ 200 mls/hr IV ONETIME ONE Stop: 02/23/17 22:29 Last Admin: 02/24/17 12:04 Dose: Not Given Lactated Ringer's (Ringers, Lactated) 1,000 mls @ 150 mls/hr IV ASDIRECTED GRACIELA Last Admin: 02/24/17 20:57 Dose: 125 mls/hr Oxytocin/Lactated Ringer's (Pitocin In Lr 30 Units/500 Ml) 30 unit in 500 mls @ 999 mls/hr IV TITRATE GRACIELA; 999 MUNITS/MIN PRN Reason: Protocol Stop: 02/23/17 22:16 Oxytocin/Lactated Ringer's (Pitocin In Lr 30 Units/500 Ml) 30 unit in 500 mls @ 2 mls/hr IV TITRATE GRACIELA; 2 MUNITS/MIN PRN Reason: Protocol Ampicillin Sodium 1 gm/ Sodium (Chloride) 50 mls @ 100 mls/hr IV Q4H GRACIELA Stop: 02/25/17 00:41 Last Admin: 02/24/17 21:39 Dose: 100 mls/hr Ampicillin Sodium 2 gm/ Sodium (Chloride) 100 mls @ 200 mls/hr IV ONETIME ONE Stop: 02/24/17 09:29 Last Admin: 02/24/17 09:08 Dose: 200 mls/hr Ropivacaine/Fentanyl/NS (Fentanyl 2 Mcg-Ropiv 0.2%-Ns) Confirm Administered Dose 100 mls @ as directed .ROUTE .STK-MED ONE Stop: 02/24/17 14:05 Oxytocin/Lactated Ringer's (Pitocin In Lr 30 Units/500 Ml) 30 unit in 500 mls @ 2 mls/hr IV TITRATE GRACIELA; 2 MUNITS/MIN PRN Reason: Protocol Last Titration: 02/24/17 19:42 Dose: 6 munits/min, 6 mls/hr Lidocaine HCl (Xylocaine 1%) 50 ml INJECT .ONCE PRN PRN Reason: Laceration repair Methylergonovine Maleate (Methergine) 0.2 mg IM ASDIRECTED PRN PRN Reason: Post Hemorrhage Misoprostol (Cytotec) 200 mcg PO .ONCE PRN PRN Reason: Post Hemorrhage Misoprostol (Cytotec) 25 mcg VAG .ONCE GRACIELA Misoprostol (Cytotec) 25 mcg VAG Q4H PRN PRN Reason: Cervical Ripening Stop: 02/25/17 01:39 Last Admin: 02/24/17 04:21 Dose: 25 mcg Misoprostol (Cytotec) 25 mcg PO Q4H GRACIELA Last Admin: 02/24/17 12:06 Dose: Not Given Nalbuphine HCl (Nubain) 10 mg IVPUSH Q1H PRN PRN Reason: Pain (severe 7-10) Stop: 02/23/17 23:39 Nifedipine (Procardia Xl) 60 mg PO DAILY [facility] Last Admin: 02/24/17 08:52 Dose: 60 mg Nifedipine (Procardia Xl) Confirm Administered Dose 60 mg .ROUTE .STK-MED ONE Stop: 02/25/17 09:09 Ropivacaine (Naropin 0.2%) Confirm Administered Dose 20 ml .ROUTE .STK-MED ONE Stop: 02/24/17 14:06 Sodium Chloride (Saline Flush) 10 ml FLUSH ASDIRECTED PRN PRN Reason: Keep Vein Open Sodium Chloride (Saline Flush) 2.5 ml FLUSH ASDIRECTED PRN PRN Reason: Keep Vein Open Sterile Water (Sterile Water For Irrigation) 1,000 ml IRR ASDIRECTED PRN PRN Reason: delivery Terbutaline Sulfate (Brethine) 0.25 mg SUBCUT ASDIRECTED PRN PRN Reason: Tacysystole - Infant Interaction Infant Disposition, : [place] to Nursery Interaction: Holding , Unable to Hold at this Time Infant Feeding: Breastfed Infant; Nursed Well Support Person: - Recovery Exam Fundal Tone: Firm Fundal Level: At Umbilicus Lochia Amount: Small Lochia Color: Rubra/Red Episiotomy/Laceration: Approximated - Exam General: alert, oriented, cooperative, no acute distress Lungs: Normal respiratory effort Abdomen: soft Extremities: no tenderness/swelling, no calf tenderness, edema Skin: warm, dry, intact Wound/Incisions: healing well Neurological: no new focal deficit, normal speech, normal tone Psy/Mental Status: alert, normal affect, normal mood - Problem List & Annotations (1) induced hypertension, delivered, current hospitalization SNOMED Code(s): 40168550 Code(s): O13.4 - GESTATNL HTN WITHOUT SIGNIFICANT PROTEIN, COMP CHILDBIRTH Status: Acute Priority: High Current Visit: No (2) Supervision of normal IUP (intrauterine ) in primigravida SNOMED Code(s): 63374348, 453716298, 009042394, 163258680 Code(s): Z34.00 - ENCNTR FOR SUPRVSN OF NORMAL FIRST , UNSP TRIMESTER Status: Acute Priority: High Current Visit: No Qualifiers: Trimester: third trimester (3) (normal spontaneous vaginal delivery) SNOMED Code(s): 72496424 Code(s): O80 - ENCOUNTER FOR FULL-TERM UNCOMPLICATED DELIVERY Status: Acute Priority: Medium Current Visit: Yes - Problem List Review Problem List Initiated/Reviewed/Updated: Yes - My Orders Last 24 Hours: My Active Orders 02/25/17 00:43 May Shower [RC] ASDIRECTED Up ad Piedad [RC] ASDIRECTED Vital Signs [RC] PER UNIT ROUTINE Acetaminophen [Tylenol Extra Strength] 1,000 mg PO Q4H PRN Acetaminophen [Tylenol Extra Strength] 500 mg PO Q4H PRN Benzocaine/Menthol [Dermoplast Pain Relief 20%-0.5% [place]] 78 gm TOP ASDIRECTED PRN Bisacodyl [Dulcolax] 10 mg RECTAL .ONCE PRN Docusate Sodium [Colace] 100 mg PO BID PRN Ibuprofen [Motrin] 400 mg PO Q4H PRN Ibuprofen [Motrin] 800 mg PO Q6H PRN Lanolin [Lansinoh HPA] See Dose Instructions TOP ASDIRECTED PRN Tripp Cabrerael [Tucks] 1 pad TOP ASDIRECTED PRN oxyCODONE 5 mg PO Q2H PRN Assess Lochia [WOMSER] Per Unit Routine Assess Uterine Involution [WOMSER] Per Unit Routine Peripheral IV Discontinue [OM.PC] Routine Resuscitation Status Routine 02/25/17 00:44 Patient Status [ADT] Routine 02/25/17 09:15 NIFEdipine [Procardia XL] 60 mg PO DAILY 02/25/17 Breakfast Regular Diet [DIET] - Assessment Assessment:: A: of viable girl. APGARS 8/9. EBL 150cc 1st degree lac with repair, stable Post Day 0 A: Doing well, FF, lochia scant to small, denies any APONTE, blurred vision or epigastric pain. VSS, AF. Stable. Disc infant care with increased feeding and her having to stay a few days due to IUGR. - Plan Plan:: IOL A: 26 yo EDC 03/08/2017 38 1/7wks, B=, R-equivocal, GBS pos, H/H 12.7/37.1, PLT 356, ALT/AST 16/18, RPCR 0.11, IOL due to CHTN w/PIH symptoms. P: Admit for IOL, cytotec per protocol, AROM clear fluid, antibiotics for GBS pos, Procardia XL 60mg for BP, start pitocin prn. anticipate . Post P: routine pp plan of care. Post day 0 P: continue pp plan of care.
[2017-02-25] MEDS: Misoprostol 25 MCG (1/4 of 100 MCG) Tab PO SCH (20:26)
[2017-02-26] MEDS: NIFEdipine 30 MG Tab.ER PO SCH (09:15)
--- NOTE | 2017-02-26 15:39 | PCM.PNPP ---
- General Info Date of Service: 02/26/17 Admission Dx/Problem (Free Text): Patient Status Order with Admit Dx/Problem 02/23/17 21:38 Patient Status [ADT] Routine Admission Diagnosis/Problem Admission Diagnosis/Problem 02/24/17 08:54 26 yo EDC 03/08/2017 38 1/7wks, B=, R-equivocal, GBS pos, H/H 12.7/37.1, PLT 356, ALT/AST /, RPCR 0.11, IOL due to CHTN w/PIH symptoms. 02/24/17 08:56 Functional Status: Reports: pain controlled, tolerating diet, ambulating, urinating - Review of Systems General: Reports: No Symptoms HEENT: Reports: no symptoms Pulmonary: Reports: no symptoms Cardiovascular: Reports: No Symptoms Gastrointestinal: Reports: No symptoms Genitourinary: Reports: no symptoms Musculoskeletal: Reports: no symptoms Skin: Reports: no symptoms Neurological: Reports: No Symptoms Psychiatric: Reports: no symptoms - General Info Date of Service: 02/26/17 - Patient Data Vital Signs - most recent: Last Vital Signs Temp 37.1 C 02/26/17 08:00 Pulse 88 02/26/17 08:00 Resp 14 02/26/17 08:00 BP 139/89 02/26/17 09:15 Pulse Ox 97 02/26/17 08:00 Weight - most recent: 99.337 kg Med Orders - Current: Current Medications Acetaminophen (Tylenol Extra Strength) 500 mg PO Q4H PRN PRN Reason: Pain Acetaminophen (Tylenol Extra Strength) 1,000 mg PO Q4H PRN PRN Reason: Pain Benzocaine/Menthol (Dermoplast Pain Relief 20%-0.5% [place]) 78 gm TOP ASDIRECTED PRN PRN Reason: Perineal Comfort Measure Last Admin: 02/25/17 08:28 Dose: 1 can Bisacodyl (Dulcolax) 10 mg RECTAL .ONCE PRN PRN Reason: Constipation Docusate Sodium (Colace) 100 mg PO BID PRN PRN Reason: Constipation Last Admin: 02/25/17 08:28 Dose: 100 mg Emollient Ointment (Lansinoh Hpa) 0 gm TOP ASDIRECTED PRN PRN Reason: Sore Nipples Last Admin: 02/25/17 17:55 Dose: 1 tube Ibuprofen (Motrin) 400 mg PO Q4H PRN PRN Reason: Pain Ibuprofen (Motrin) 800 mg PO Q6H PRN PRN Reason: Pain Last Admin: 02/25/17 08:28 Dose: 800 mg Nifedipine (Procardia Xl) 60 mg PO DAILY [facility] Last Admin: 02/26/17 09:15 Dose: 60 mg Oxycodone HCl (Oxycodone) 5 mg PO Q2H PRN PRN Reason: Pain Witch Maggie (Tucks) 1 pad TOP ASDIRECTED PRN PRN Reason: comfort care Discontinued Medications Butorphanol Tartrate (Stadol) 1 mg IVPUSH Q1H PRN PRN Reason: Pain Last Admin: 02/24/17 12:32 Dose: 1 mg Carboprost Tromethamine (Hemabate Ds) 250 mcg IM ASDIRECTED PRN PRN Reason: Post Hemorrhage Ampicillin Sodium 2 gm/ Sodium (Chloride) 100 mls @ 200 mls/hr IV ONETIME ONE Stop: 02/23/17 22:29 Last Admin: 02/24/17 12:04 Dose: Not Given Lactated Ringer's (Ringers, Lactated) 1,000 mls @ 150 mls/hr IV ASDIRECTED GRACIELA Last Admin: 02/24/17 20:57 Dose: 125 mls/hr Oxytocin/Lactated Ringer's (Pitocin In Lr 30 Units/500 Ml) 30 unit in 500 mls @ 999 mls/hr IV TITRATE GRACIELA; 999 MUNITS/MIN PRN Reason: Protocol Stop: 02/23/17 22:16 Oxytocin/Lactated Ringer's (Pitocin In Lr 30 Units/500 Ml) 30 unit in 500 mls @ 2 mls/hr IV TITRATE GRACIELA; 2 MUNITS/MIN PRN Reason: Protocol Ampicillin Sodium 1 gm/ Sodium (Chloride) 50 mls @ 100 mls/hr IV Q4H [facility] Stop: 02/25/17 00:41 Last Admin: 02/24/17 21:39 Dose: 100 mls/hr Ampicillin Sodium 2 gm/ Sodium (Chloride) 100 mls @ 200 mls/hr IV ONETIME ONE Stop: 02/24/17 09:29 Last Admin: 02/24/17 09:08 Dose: 200 mls/hr Ropivacaine/Fentanyl/NS (Fentanyl 2 Mcg-Ropiv 0.2%-Ns) Confirm Administered Dose 100 mls @ as directed .ROUTE .STK-MED ONE Stop: 02/24/17 14:05 Last Admin: 02/25/17 20:25 Dose: Not Given Oxytocin/Lactated Ringer's (Pitocin In Lr 30 Units/500 Ml) 30 unit in 500 mls @ 2 mls/hr IV TITRATE GRACIELA; 2 MUNITS/MIN PRN Reason: Protocol Last Titration: 02/24/17 19:42 Dose: 6 munits/min, 6 mls/hr Lidocaine HCl (Xylocaine 1%) 50 ml INJECT .ONCE PRN PRN Reason: Laceration repair Methylergonovine Maleate (Methergine) 0.2 mg IM ASDIRECTED PRN PRN Reason: Post Hemorrhage Misoprostol (Cytotec) 200 mcg PO .ONCE PRN PRN Reason: Post Hemorrhage Misoprostol (Cytotec) 25 mcg VAG .ONCE GRACIELA Misoprostol (Cytotec) 25 mcg VAG Q4H PRN PRN Reason: Cervical Ripening Stop: 02/25/17 01:39 Last Admin: 02/24/17 04:21 Dose: 25 mcg Misoprostol (Cytotec) 25 mcg PO Q4H GRACIELA Last Admin: 02/25/17 20:26 Dose: Not Given Nalbuphine HCl (Nubain) 10 mg IVPUSH Q1H PRN PRN Reason: Pain (severe 7-10) Stop: 02/23/17 23:39 Nifedipine (Procardia Xl) 60 mg PO DAILY GRACIEAL Last Admin: 02/24/17 08:52 Dose: 60 mg Nifedipine (Procardia Xl) Confirm Administered Dose 60 mg .ROUTE .STK-MED ONE Stop: 02/25/17 09:09 Last Admin: 02/25/17 20:25 Dose: Not Given Ropivacaine (Naropin 0.2%) Confirm Administered Dose 20 ml .ROUTE .STK-MED ONE Stop: 02/24/17 14:06 Last Admin: 02/25/17 20:25 Dose: Not Given Sodium Chloride (Saline Flush) 10 ml FLUSH ASDIRECTED PRN PRN Reason: Keep Vein Open Sodium Chloride (Saline Flush) 2.5 ml FLUSH ASDIRECTED PRN PRN Reason: Keep Vein Open Sterile Water (Sterile Water For Irrigation) 1,000 ml IRR ASDIRECTED PRN PRN Reason: delivery Terbutaline Sulfate (Brethine) 0.25 mg SUBCUT ASDIRECTED PRN PRN Reason: Tacysystole - Infant Interaction Disposition, : to Nursery Interaction: Holding , Unable to Hold Infant at this Time Feeding: Breastfed Infant; Nursed Well Support Person: - Recovery Exam Fundal Tone: Firm Fundal Level: 1 Fingerbreadths Below Umbilicus Fundal Placement: Midline Lochia Amount: Scant Lochia Color: Rubra/Red Perineum Description: Intact, Minimal Bruising/Swelling Episiotomy/Laceration: Approximated Bladder Status: Nonpalpable Urinary Elimination: Voided - Exam General: alert, oriented, cooperative, no acute distress Lungs: Normal respiratory effort Abdomen: soft, no tenderness, no distension Extremities: no tenderness/swelling, no calf tenderness Skin: warm, dry, intact Wound/Incisions: healing well Neurological: no new focal deficit, normal speech, normal tone Psy/Mental Status: alert, normal affect, normal mood - Problem List & Annotations (1) induced hypertension, delivered, current hospitalization SNOMED Code(s): 27005450 Code(s): O13.4 - GESTATNL HTN WITHOUT SIGNIFICANT PROTEIN, COMP CHILDBIRTH Status: Acute Priority: High Current Visit: No (2) Supervision of normal IUP (intrauterine ) in primigravida SNOMED Code(s): 09234462, 153509254, 674617706, 063070305 Code(s): Z34.00 - ENCNTR FOR SUPRVSN OF NORMAL FIRST , UNSP TRIMESTER Status: Acute Priority: High Current Visit: No Qualifiers: Trimester: third trimester (3) (normal spontaneous vaginal delivery) SNOMED Code(s): 69517713 Code(s): O80 - ENCOUNTER FOR FULL-TERM UNCOMPLICATED DELIVERY Status: Acute Priority: Medium Current Visit: Yes - Problem List Review Problem List Initiated/Reviewed/Updated: Yes - Assessment Assessment:: A: of viable girl. APGARS 8/9. EBL 150cc 1st degree lac with repair, stable Post Day 0 A: Doing well, FF, lochia scant to small, denies any APONTE, blurred vision or epigastric pain. VSS, AF. Stable. Disc care with increased feeding and her having to stay a few days due to IUGR. Post day 1 A: Doing very well, FF, locha scant, denies any HS, blurred vision or epigastric pain. VSS, BP WNL, AF, Stable. doing well. - Plan Plan:: IOL A: 26 yo EDC 03/08/2017 38 1/7wks, B=, R-equivocal, GBS pos, H/H 12.7/37.1, PLT 356, ALT/AST 16/18, RPCR 0.11, IOL due to CHTN w/PIH symptoms. P: Admit for IOL, cytotec per protocol, AROM clear fluid, antibiotics for GBS pos, Procardia XL 60mg for BP, start pitocin prn. anticipate . Post P: routine pp plan of care. Post day 0 P: continue pp plan of care. Post day 1 P: Disc staying one more night to assist with breast feeding and infant care, to monitor her BP. Will make final decision this evening.
--- NOTE | 2017-02-27 08:40 | PCM.PNPP ---
- General Info Date of Service: 02/27/17 Functional Status: Reports: pain controlled - Review of Systems General: Reports: No Symptoms HEENT: Reports: no symptoms Pulmonary: Reports: no symptoms Cardiovascular: Reports: No Symptoms Gastrointestinal: Reports: No symptoms Genitourinary: Reports: no symptoms Musculoskeletal: Reports: no symptoms Skin: Reports: no symptoms Neurological: Reports: No Symptoms Psychiatric: Reports: no symptoms - General Info Date of Service: 02/27/17 - Patient Data Vital Signs - most recent: Last Vital Signs Temp 37.5 C 02/27/17 08:01 Pulse 85 02/27/17 08:01 Resp 18 02/27/17 08:01 BP 132/86 02/27/17 08:01 Pulse Ox 98 02/26/17 20:00 Weight - most recent: 99.337 kg Med Orders - Current: Current Medications Acetaminophen (Tylenol Extra Strength) 500 mg PO Q4H PRN PRN Reason: Pain Acetaminophen (Tylenol Extra Strength) 1,000 mg PO Q4H PRN PRN Reason: Pain Benzocaine/Menthol (Dermoplast Pain Relief 20%-0.5% [place]) 78 gm TOP ASDIRECTED PRN PRN Reason: Perineal Comfort Measure Last Admin: 02/25/17 08:28 Dose: 1 can Bisacodyl (Dulcolax) 10 mg RECTAL .ONCE PRN PRN Reason: Constipation Docusate Sodium (Colace) 100 mg PO BID PRN PRN Reason: Constipation Last Admin: 02/25/17 08:28 Dose: 100 mg Emollient Ointment (Lansinoh Hpa) 0 gm TOP ASDIRECTED PRN PRN Reason: Sore Nipples Last Admin: 02/25/17 17:55 Dose: 1 tube Ibuprofen (Motrin) 400 mg PO Q4H PRN PRN Reason: Pain Ibuprofen (Motrin) 800 mg PO Q6H PRN PRN Reason: Pain Last Admin: 02/25/17 08:28 Dose: 800 mg Nifedipine (Procardia Xl) 60 mg PO DAILY [facility] Last Admin: 02/26/17 09:15 Dose: 60 mg Oxycodone HCl (Oxycodone) 5 mg PO Q2H PRN PRN Reason: Pain Witch Maggie (Tucks) 1 pad TOP ASDIRECTED PRN PRN Reason: comfort care Discontinued Medications Butorphanol Tartrate (Stadol) 1 mg IVPUSH Q1H PRN PRN Reason: Pain Last Admin: 02/24/17 12:32 Dose: 1 mg Carboprost Tromethamine (Hemabate Ds) 250 mcg IM ASDIRECTED PRN PRN Reason: Post Hemorrhage Ampicillin Sodium 2 gm/ Sodium (Chloride) 100 mls @ 200 mls/hr IV ONETIME ONE Stop: 02/23/17 22:29 Last Admin: 02/24/17 12:04 Dose: Not Given Lactated Ringer's (Ringers, Lactated) 1,000 mls @ 150 mls/hr IV ASDIRECTED GRACIELA Last Admin: 02/24/17 20:57 Dose: 125 mls/hr Oxytocin/Lactated Ringer's (Pitocin In Lr 30 Units/500 Ml) 30 unit in 500 mls @ 999 mls/hr IV TITRATE GRACILEA; 999 MUNITS/MIN PRN Reason: Protocol Stop: 02/23/17 22:16 Oxytocin/Lactated Ringer's (Pitocin In Lr 30 Units/500 Ml) 30 unit in 500 mls @ 2 mls/hr IV TITRATE GRACIELA; 2 MUNITS/MIN PRN Reason: Protocol Ampicillin Sodium 1 gm/ Sodium (Chloride) 50 mls @ 100 mls/hr IV Q4H GR[facility]ELA Stop: 02/25/17 00:41 Last Admin: 02/24/17 21:39 Dose: 100 mls/hr Ampicillin Sodium 2 gm/ Sodium (Chloride) 100 mls @ 200 mls/hr IV ONETIME ONE Stop: 02/24/17 09:29 Last Admin: 02/24/17 09:08 Dose: 200 mls/hr Ropivacaine/Fentanyl/NS (Fentanyl 2 Mcg-Ropiv 0.2%-Ns) Confirm Administered Dose 100 mls @ as directed .ROUTE .STK-MED ONE Stop: 02/24/17 14:05 Last Admin: 02/25/17 20:25 Dose: Not Given Oxytocin/Lactated Ringer's (Pitocin In Lr 30 Units/500 Ml) 30 unit in 500 mls @ 2 mls/hr IV TITRATE GRACIELA; 2 MUNITS/MIN PRN Reason: Protocol Last Titration: 02/24/17 19:42 Dose: 6 munits/min, 6 mls/hr Lidocaine HCl (Xylocaine 1%) 50 ml INJECT .ONCE PRN PRN Reason: Laceration repair Methylergonovine Maleate (Methergine) 0.2 mg IM ASDIRECTED PRN PRN Reason: Post Hemorrhage Misoprostol (Cytotec) 200 mcg PO .ONCE PRN PRN Reason: Post Hemorrhage Misoprostol (Cytotec) 25 mcg VAG .ONCE GRACIELA Misoprostol (Cytotec) 25 mcg VAG Q4H PRN PRN Reason: Cervical Ripening Stop: 02/25/17 01:39 Last Admin: 02/24/17 04:21 Dose: 25 mcg Misoprostol (Cytotec) 25 mcg PO Q4H [facility] Last Admin: 02/25/17 20:26 Dose: Not Given Nalbuphine HCl (Nubain) 10 mg IVPUSH Q1H PRN PRN Reason: Pain (severe 7-10) Stop: 02/23/17 23:39 Nifedipine (Procardia Xl) 60 mg PO DAILY [facility] Last Admin: 02/24/17 08:52 Dose: 60 mg Nifedipine (Procardia Xl) Confirm Administered Dose 60 mg .ROUTE .STK-MED ONE Stop: 02/25/17 09:09 Last Admin: 02/25/17 20:25 Dose: Not Given Ropivacaine (Naropin 0.2%) Confirm Administered Dose 20 ml .ROUTE .STK-MED ONE Stop: 02/24/17 14:06 Last Admin: 02/25/17 20:25 Dose: Not Given Sodium Chloride (Saline Flush) 10 ml FLUSH ASDIRECTED PRN PRN Reason: Keep Vein Open Sodium Chloride (Saline Flush) 2.5 ml FLUSH ASDIRECTED PRN PRN Reason: Keep Vein Open Sterile Water (Sterile Water For Irrigation) 1,000 ml IRR ASDIRECTED PRN PRN Reason: delivery Terbutaline Sulfate (Brethine) 0.25 mg SUBCUT ASDIRECTED PRN PRN Reason: Tacysystole - Interaction Infant Disposition, : to Nursery Infant Interaction: Holding , Unable to Hold at this Time Infant Feeding: Breastfed Infant; Nursed Well Support Person: - Recovery Exam Fundal Tone: Firm Fundal Level: 2 Fingerbreadths Below Umbilicus Fundal Placement: Midline Lochia Amount: Scant Lochia Color: Rubra/Red Perineum Description: Intact, Minimal Bruising/Swelling Episiotomy/Laceration: Approximated Bladder Status: Voiding Urinary Elimination: Voided - Exam General: alert, oriented HEENT: Pupils equal Neck: supple Lungs: Clear to auscultation, Normal respiratory effort Cardiovascular: Regular Rate, Regular Rhythm Abdomen: bowel sounds present, soft, no tenderness, no distension Extremities: no edema Skin: warm, dry, intact Wound/Incisions: healing well Neurological: no new focal deficit Psy/Mental Status: alert, normal affect, normal mood - Problem List Review Problem List Initiated/Reviewed/Updated: Yes - Assessment Assessment:: A: of viable girl. APGARS 8/9. EBL 150cc 1st degree lac with repair, stable Post Day 0 A: Doing well, FF, lochia scant to small, denies any APONTE, blurred vision or epigastric pain. VSS, AF. Stable. Disc care with increased feeding and her having to stay a few days due to IUGR. Post day 1 A: Doing very well, FF, locha scant, denies any HS, blurred vision or epigastric pain. VSS, BP WNL, AF, Stable. Infant doing well. - Plan Plan:: IOL A: 26 yo EDC 03/08/2017 38 1/7wks, B=, R-equivocal, GBS pos, H/H 12.7/37.1, PLT 356, ALT/AST 16/18, RPCR 0.11, IOL due to CHTN w/PIH symptoms. P: Admit for IOL, cytotec per protocol, AROM clear fluid, antibiotics for GBS pos, Procardia XL 60mg for BP, start pitocin prn. anticipate . Post P: routine pp plan of care. Post day 0 P: continue pp plan of care. Post day 1 P: Disc staying one more night to assist with breast feeding and infant care, to monitor her BP. Will make final decision this evening.
[2017-02-27] MEDS: NIFEdipine 30 MG Tab.ER PO SCH (09:24)
[2017-02-27 09:28] VITALS: BP 147/88
== END 2017-02-27 11:25 | disposition home or self-care (01) | DRG 775 ==
LOC: MW.OB 00:13 → OBSVTOIN 02-25 00:13 → MW.OB 02-25 05:30
PROVIDERS: ADMIT Obstetrics & Gynecology; ATTEND Obstetrics & Gynecology
PROC: 10E0XZZ Delivery of Products of Conception, External Approach (ICD-10-PCS; principal; 2017-02-25)
PROC: 3E0P7GC Introduction of Other Therapeutic Substance into Female Reproductive, Via Natural or Artificial Opening (ICD-10-PCS; 2017-02-25)
PROC: 0HQ9XZZ Repair Perineum Skin, External Approach (ICD-10-PCS; 2017-02-25)
DX: O13.4 Gestational [pregnancy-induced] hypertension without significant proteinuria, complicating childbirth (principal); Z3A.38 38 weeks gestation of pregnancy; Z37.0 Single live birth
CPT/HCPCS: 01967; 36415; 59025; 80053; 82570; 84156; 84550; 85027; 86850; 86900; 86901; A9270-GY; J0290; J0595; J2795; J7030; J7050; J7120

== ENCOUNTER 2018-02-11 18:15 | Inpatient (IN) | payer BC ==
[2018-02-11] MEDS ORDERED: Methylergonovine 0.2 MG/1 ML Amp IM PRN (18:51)
[2018-02-11] MEDS ORDERED: Tranexamic Acid 1,000 MG in Sodium Chloride 0.9% 100 ML IV PRN (18:51)
[2018-02-11] MEDS ORDERED: Lidocaine 1% 50 ML MDV INJECT PRN (18:51)
[2018-02-11] MEDS ORDERED: Nalbuphine 10 MG/1 ML Vial IVPUSH PRN (18:51)
[2018-02-11] MEDS ORDERED: Sodium Chloride 0.9% 2.5 ML Syringe FLUSH PRN (18:51)
[2018-02-11] MEDS ORDERED: Water For Irrigation,Sterile 1,000 ML Container IRR PRN (18:51)
[2018-02-11] MEDS ORDERED: Sodium Chloride 0.9% 10 ML Syringe FLUSH PRN (18:51)
[2018-02-11] MEDS ORDERED: Misoprostol 200 MCG Tab PO PRN (18:51)
[2018-02-11] MEDS ORDERED: Carboprost Tromethamine 250 MCG/1 ML Amp IM PRN (18:51)
[2018-02-11] MEDS ORDERED: Butorphanol 1 MG/ML SDV IVPUSH PRN (18:51)
[2018-02-11] MEDS ORDERED: Oxytocin/0.9 % Sodium Chloride 30 UNIT/500 ML BAG IV SCH ×2 (19:00→20:30)
[2018-02-11] MEDS ORDERED: Ampicillin 2 GM in Sodium Chloride 0.9% 100 ML IV STA (19:30)
[2018-02-11] MEDS: Lactated Ringers 1,000 ML IV SCH (19:50)
[2018-02-11 20:00] LABS: CHLORIDE,CL 105 mmol/L (98-107); SODIUM,NA 138 mmol/L (136-145)
[2018-02-12] MEDS: Ampicillin 1 GM in Sodium Chloride 0.9% 50 ML IV SCH ×3 (00:16→07:52)
[2018-02-12] MEDS: Lactated Ringers 1,000 ML IV SCH ×3 (03:15→08:24)
--- NOTE | 2018-02-12 03:32 | PCM.PREANE ---
Preanesthetic Assessment - Anesthesia/Transfusion/Family Hx Anesthesia History: Prior Anesthesia Without Reaction Transfusion History: No Prior Transfusion(s) - Review of Systems General: No Symptoms Pulmonary: No Symptoms Cardiovascular: No Symptoms Gastrointestinal: No Symptoms Neurological: No Symptoms Other: Reports: None - Physical Assessment Height: 5 ft 7 in Weight: 103.873 kg ASA Class: 2 Mental Status: Alert & Oriented x3 Airway Class: Mallampati = 2 Dentition: Reports: Normal Dentition Thyro-Mental Finger Breadths: 3 Mouth Opening Finger Breadths: 3 ROM/Head Extension: Full Lungs: Clear to Auscultation, Normal Respiratory Effort Cardiovascular: Regular Rate, Regular Rhythm - Lab Values: Laboratory Last Values WBC 10.30 K/uL (4.0-11.0) 02/11/18 19: RBC 4.23 M/uL (4.30-5.90) L 02/11/18 19:18 Hgb 12.0 g/dL (12.0-16.0) 02/11/18 19:18 Hct 35.4 % (36.0-46.0) L 02/11/18 19:18 MCV 83.7 fL (80.0-98.0) 02/11/18 19:18 MCH 28.4 pg (27.0-32.0) 02/11/18 19:18 MCHC 33.9 g/dL (31.0-37.0) 02/11/18 19:18 RDW Std Deviation 41.3 fl (28.0-62.0) 02/11/18 19:18 RDW Coeff of Efrain 14 % (11.0-15.0) 02/11/18 19:18 Plt Count 388 K/uL (150-400) 02/11/18 19:18 MPV 9.40 fL (7.40-12.00) 02/11/18 19:18 Nucleated RBC % 0.0 /100WBC 02/11/18 19:18 Nucleated RBCs # 0 K/uL 02/11/18 19:18 Sodium 138 mmol/L (136-145) 02/11/18 19:18 Potassium 3.5 mmol/L (3.5-5.1) 02/11/18 19:18 Chloride 105 mmol/L (98-107) 02/11/18 19:18 Carbon Dioxide 19.7 mmol/L (21.0-32.0) L 02/11/18 19:18 BUN 11 mg/dL (7.0-18.0) 02/11/18 19:18 Creatinine 0.7 mg/dL (0.6-1.0) 02/11/18 19:18 Est Cr Clr Drug Dosing 116.35 mL/min 02/11/18 19:18 Estimated GFR (MDRD) > 60.0 ml/min 02/11/18 19:18 Glucose 90 mg/dL (74-106) 02/11/18 19:18 Uric Acid 4.2 mg/dL (2.6-7.2) 02/11/18 19:18 Calcium 8.5 mg/dL (8.5-10.1) 02/11/18 19:18 Total Bilirubin 0.5 mg/dL (0.2-1.0) 02/11/18 19:18 AST 16 IU/L (15-37) 02/11/18 19:18 ALT 15 IU/L (14-63) 02/11/18 19:18 Alkaline Phosphatase 132 U/L (46-116) H 02/11/18 19:18 Total Protein 6.7 g/dL (6.4-8.2) 02/11/18 19:18 Albumin 2.6 g/dL (3.4-5.0) L 02/11/18 19:18 Globulin 4.1 g/dL (2.0-3.5) H 02/11/18 19:18 Albumin/Globulin Ratio 0.6 (1.3-2.8) L 02/11/18 19:18 Blood Type B POSITIVE 02/11/18 19:18 Antibody Screen NEGATIVE 02/11/18 19:18 - Allergies Allergies/Adverse Reactions: Allergies Allergy/AdvReac Type Severity Reaction Status Date / Time No Known Allergies Allergy Verified 02/11/18 18:47 - Acknowledgements Anesthesia Type Planned: Epidural Pt an Appropriate Candidate for the Planned Anesthesia: Yes Alternatives and Risks of Anesthesia Discussed w Pt/Guardian: Yes Pt/Guardian Understands and Agrees with Anesthesia Plan: Yes PreAnesthesia Questionnaire - Past Health History Medical/Surgical History: Denies Medical/Surgical History HEENT History: Reports: Other (See Below) Other HEENT History: Wearing eyeglasses for nearsightedness. Cardiovascular History: Reports: Hypertension Respiratory History: Reports: None Gastrointestinal History: Reports: GERD Genitourinary History: Reports: None [employer] History: Reports: : 2 Para: 1 LMP (Approximate): Musculoskeletal History: Reports: None Neurological History: Reports: None Psychiatric History: Reports: None Endocrine/Metabolic History: Reports: Obesity/BMI 30+ Hematologic History: Reports: None Immunologic History: Reports: None Oncologic (Cancer) History: Reports: None Dermatologic History: Reports: None - Infectious Disease History Infectious Disease History: Reports: Chicken Pox - Past Surgical History HEENT Surgical History: Reports: Oral Surgery, Other (See Below) Other HEENT Surgeries/Procedures: tubes inserted inside both ears. - HOME MEDS Home Medications: Home Meds NIFEdipine [Procardia XL] 3 tab PO DAILY 02/13/17 [History] Aspirin [Adult Aspirin] 81 mg PO DAILY 01/11/18 [History] - CURRENT (IN HOUSE) MEDS Current Meds: Current Medications Butorphanol Tartrate (Stadol) 1 mg IVPUSH Q1H PRN PRN Reason: Pain Last Admin: 02/12/18 02:35 Dose: 1 mg Carboprost Tromethamine (Hemabate Ds) 250 mcg IM ASDIRECTED PRN PRN Reason: Post Hemorrhage Ampicillin Sodium 1 gm/ Sodium (Chloride) 50 mls @ 100 mls/hr IV Q4H [facility]A Last Admin: 02/12/18 00:16 Dose: 100 mls/hr Lactated Ringer's (Ringers, Lactated) 1,000 mls @ 150 mls/hr IV ASDIRECTED GRACIELA Last Admin: 02/12/18 03:15 Dose: 150 mls/hr Oxytocin/Sodium Chloride (Oxytocin 30 Unit/500 Ml-Ns) 30 unit in 500 mls @ 500 mls/hr IV TITRATE GRACIELA Tranexamic Acid 1,000 mg/ (Sodium Chloride) 110 mls @ 660 mls/hr IV ONETIME PRN PRN Reason: Bleeding Oxytocin/Sodium Chloride (Oxytocin 30 Unit/500 Ml-Ns) 30 unit in 500 mls @ 2 mls/hr IV TITRATE GRACIELA; Protocol Last Infusion: 02/12/18 03:02 Dose: 16 munits/min, 16 mls/hr Lidocaine HCl (Xylocaine 1%) 50 ml INJECT .ONCE PRN PRN Reason: Laceration repair Methylergonovine Maleate (Methergine) 0.2 mg IM ASDIRECTED PRN PRN Reason: Post Hemorrhage Misoprostol (Cytotec) 200 mcg PO .ONCE PRN PRN Reason: Post Hemorrhage Nalbuphine HCl (Nubain) 10 mg IVPUSH Q1H PRN PRN Reason: Pain (severe 7-10) Sodium Chloride (Saline Flush) 10 ml FLUSH ASDIRECTED PRN PRN Reason: Keep Vein Open Sodium Chloride (Saline Flush) 2.5 ml FLUSH ASDIRECTED PRN PRN Reason: Keep Vein Open Sterile Water (Sterile Water For Irrigation) 1,000 ml IRR ASDIRECTED PRN PRN Reason: delivery Discontinued Medications Ampicillin Sodium 2 gm/ Sodium (Chloride) 100 mls @ 200 mls/hr IV NOW STA Stop: 02/11/18 19:59 Last Admin: 02/11/18 19:49 Dose: 200 mls/hr
--- NOTE | 2018-02-12 12:00 | PCM.DEL ---
L & D Note - General Info Date of Service: 02/12/18 Mother's Due Date: 02/11/18 - Delivery Note Labor: Induced by Oxytocin Delivery Outcome: Livebirth Infant Delivery Method: Spontaneous Vaginal Delivery-Single Presentation: Left Occiput Anterior (MORIS) Nuchal Cord: Reduced Prep: Other Anesthesia Type: Epidural Amniotic Fluid Description: Clear Episiotomy Type: None Laceration: Vaginal Suture type: Vicryl Suture size: 3-0 Placenta: Intact, Spontaneous Cord: 3 Vessels Estimated Blood Loss: 300 Resuscitation Needed: No : Suctioned Provider: Fernie Moreira Score 1 min: 7 Score 5 min: 8 Second Stage Interventions: Reports: Pushing Effectively (Male ) - General Info Date of Service: 02/12/18 - Patient Data Weight - Most Recent: 103.873 kg Lab Results Last 24 Hours: Laboratory Results - last 24 hr 02/11/18 02/11/18 02/11/18 Range/Units 19:18 19:18 19:18 WBC 10.30 (4.0-11.0) K/uL RBC 4.23 L (4.30-5.90) M/uL Hgb 12.0 (12.0-16.0) g/dL Hct 35.4 L (36.0-46.0) % MCV 83.7 (80.0-98.0) fL MCH 28.4 (27.0-32.0) pg MCHC 33.9 (31.0-37.0) g/dL RDW Std Deviation 41.3 (28.0-62.0) fl RDW Coeff of Efrain 14 (11.0-15.0) % Plt Count 388 (150-400) K/uL MPV 9.40 (7.40-12.00) fL Nucleated RBC % 0.0 /100WBC Nucleated RBCs # 0 K/uL Sodium 138 (136-145) mmol/L Potassium 3.5 (3.5-5.1) mmol/L Chloride 105 (98-107) mmol/L Carbon Dioxide 19.7 L (21.0-32.0) mmol/L BUN 11 (7.0-18.0) mg/dL Creatinine 0.7 (0.6-1.0) mg/dL Est Cr Clr Drug Dosing 116.35 mL/min Estimated GFR (MDRD) > 60.0 ml/min Glucose 90 (74-106) mg/dL Uric Acid (2.6-7.2) mg/dL Calcium 8.5 (8.5-10.1) mg/dL Total Bilirubin 0.5 (0.2-1.0) mg/dL AST 16 (15-37) IU/L ALT 15 (14-63) IU/L Alkaline Phosphatase 132 H (46-116) U/L Total Protein 6.7 (6.4-8.2) g/dL Albumin 2.6 L (3.4-5.0) g/dL Globulin 4.1 H (2.0-3.5) g/dL Albumin/Globulin Ratio 0.6 L (1.3-2.8) Blood Type B POSITIVE Antibody Screen NEGATIVE 02/11/18 Range/Units 19:18 WBC (4.0-11.0) K/uL RBC (4.30-5.90) M/uL Hgb (12.0-16.0) g/dL Hct (36.0-46.0) % MCV (80.0-98.0) fL MCH (27.0-32.0) pg MCHC (31.0-37.0) g/dL RDW Std Deviation (28.0-62.0) fl RDW Coeff of Efrain (11.0-15.0) % Plt Count (150-400) K/uL MPV (7.40-12.00) fL Nucleated RBC % /100WBC Nucleated RBCs # K/uL Sodium (136-145) mmol/L Potassium (3.5-5.1) mmol/L Chloride (98-107) mmol/L Carbon Dioxide (21.0-32.0) mmol/L BUN (7.0-18.0) mg/dL Creatinine (0.6-1.0) mg/dL Est Cr Clr Drug Dosing mL/min Estimated GFR (MDRD) ml/min Glucose (74-106) mg/dL Uric Acid 4.2 (2.6-7.2) mg/dL Calcium (8.5-10.1) mg/dL Total Bilirubin (0.2-1.0) mg/dL AST (15-37) IU/L ALT (14-63) IU/L Alkaline Phosphatase (46-116) U/L Total Protein (6.4-8.2) g/dL Albumin (3.4-5.0) g/dL Globulin (2.0-3.5) g/dL Albumin/Globulin Ratio (1.3-2.8) Blood Type Antibody Screen Med Orders - Current: Current Medications Butorphanol Tartrate (Stadol) 1 mg IVPUSH Q1H PRN PRN Reason: Pain Last Admin: 02/12/18 02:35 Dose: 1 mg Carboprost Tromethamine (Hemabate Ds) 250 mcg IM ASDIRECTED PRN PRN Reason: Post Hemorrhage Ampicillin Sodium 1 gm/ Sodium (Chloride) 50 mls @ 100 mls/hr IV Q4H GRACIELA Last Admin: 02/12/18 07:52 Dose: 100 mls/hr Lactated Ringer's (Ringers, Lactated) 1,000 mls @ 150 mls/hr IV ASDIRECTED GRACIELA Last Admin: 02/12/18 08:24 Dose: 300 mls/hr Oxytocin/Sodium Chloride (Oxytocin 30 Unit/500 Ml-Ns) 30 unit in 500 mls @ 500 mls/hr IV TITRATE GRACIELA Tranexamic Acid 1,000 mg/ (Sodium Chloride) 110 mls @ 660 mls/hr IV ONETIME PRN PRN Reason: Bleeding Oxytocin/Sodium Chloride (Oxytocin 30 Unit/500 Ml-Ns) 30 unit in 500 mls @ 2 mls/hr IV TITRATE GRACIELA; Protocol Last Infusion: 02/12/18 10:08 Dose: 4 munits/min, 4 mls/hr Lidocaine HCl (Xylocaine 1%) 50 ml INJECT .ONCE PRN PRN Reason: Laceration repair Methylergonovine Maleate (Methergine) 0.2 mg IM ASDIRECTED PRN PRN Reason: Post Hemorrhage Misoprostol (Cytotec) 200 mcg PO .ONCE PRN PRN Reason: Post Hemorrhage Nalbuphine HCl (Nubain) 10 mg IVPUSH Q1H PRN PRN Reason: Pain (severe 7-10) Sodium Chloride (Saline Flush) 10 ml FLUSH ASDIRECTED PRN PRN Reason: Keep Vein Open Sodium Chloride (Saline Flush) 2.5 ml FLUSH ASDIRECTED PRN PRN Reason: Keep Vein Open Sterile Water (Sterile Water For Irrigation) 1,000 ml IRR ASDIRECTED PRN PRN Reason: delivery Discontinued Medications Ampicillin Sodium 2 gm/ Sodium (Chloride) 100 mls @ 200 mls/hr IV NOW STA Stop: 02/11/18 19:59 Last Admin: 02/11/18 19:49 Dose: 200 mls/hr Fentanyl/Bupivacaine HCl (Gojnehgj-Cmxcc-Bw 2 Mcg/Ml-0.125%) Confirm Administered Dose 100 mls @ as directed .[facility] Stop: 02/12/18 03:41 - Problem List & Annotations (1) Transient hypertension of SNOMED Code(s): 440549079 Code(s): O13.9 - GESTATIONAL HTN W/O SIGNIFICANT PROTEINURIA, UNSP TRIMESTER Status: Acute Current Visit: Yes (2) Vaginal delivery SNOMED Code(s): 579681883 Code(s): O80 - ENCOUNTER FOR FULL-TERM UNCOMPLICATED DELIVERY Status: Acute Current Visit: Yes - Problem List Review Problem List Initiated/Reviewed/Updated: Yes
[2018-02-12] MEDS ORDERED: Acetaminophen 500 MG Tab PO PRN ×2 (12:01)
[2018-02-12] MEDS ORDERED: Docusate Sodium 100 MG Cap PO PRN (12:01)
[2018-02-12] MEDS ORDERED: Bisacodyl 10 MG Supp RECTAL PRN (12:01)
[2018-02-12] MEDS ORDERED: Witch Hazel Medicated Pads 40/Jar TOP PRN (12:01)
[2018-02-12] MEDS ORDERED: Ibuprofen 400 MG Tab PO PRN (12:01)
[2018-02-12] MEDS ORDERED: Benzocaine/Menthol 20%-0.5% Spray 78 GM Cannister TOP PRN (12:01)
[2018-02-12] MEDS ORDERED: oxyCODONE 5 MG Tab PO PRN (12:01)
[2018-02-12] MEDS ORDERED: Lanolin 100% Cream 7 GM Tube TOP PRN (12:01)
[2018-02-12] MEDS ORDERED: Oxytocin/0.9 % Sodium Chloride 30 UNIT/500 ML BAG ONE (12:40)
[2018-02-12] MEDS: NIFEdipine 30 MG Tab.ER PO SCH (12:44)
--- NOTE | 2018-02-12 13:48 | PCM48HPAN ---
Post Anesthesia Note - EVALUATION WITHIN 48HRS OF ANESTHETIC Vital Signs in Normal Range: Yes Patient Participated in Evaluation: Yes Respiratory Function Stable: Yes Airway Patent: Yes Cardiovascular Function Stable: Yes Hydration Status Stable: Yes Pain Control Satisfactory: Yes Nausea and Vomiting Control Satisfactory: Yes Mental Status Recovered: Yes Blood Pressure: 137/79
--- NOTE | 2018-02-12 16:35 | OR ---
SURGEON: Arlene Diego M.D. DATE OF PROCEDURE: 02/12/2018 PREOPERATIVE DIAGNOSIS: 40 and 2/7 weeks gestation with chronic hypertension. POSTOPERATIVE DIAGNOSIS: 40 and 2/7 weeks gestation with chronic hypertension. PROCEDURES: Pitocin induction of labor, term spontaneous vaginal delivery. ANESTHESIA: Epidural. ESTIMATED BLOOD LOSS: Less than 300 mL. FINDINGS: Live-born male, score 7 and 8, weight is pending at the time of dictation. Placenta was spontaneous, Schultze intact with 3 vessels. There were two blebs on chorionic surface with clear fluid. One area of possible infarction. Placenta was sent to Pathology. COMPLICATIONS: None known. DISPOSITION: Mother and baby are in LDRP in good condition. BRIEF HISTORY: This is a 27-year-old female, she is G2, P1-0-0-1. She presents at 40 and 2/7 weeks gestation with elevated blood pressure. She has chronic hypertension. She has been on a baby aspirin daily and also Procardia XL 90 mg daily even prior to this . She is a patient of Dr. Elizondo. She was admitted by Dr. Kraus for induction of labor and she was started on Pitocin. Blood pressures have been normal throughout labor. heart tones were having category II throughout the majority of labor with deep variable decelerations with management of the Pitocin. She was able to progress to complete. DESCRIPTION OF PROCEDURE: With the patient in dorsal lithotomy position, the patient pushed over 2 contractions to a 5+ station, at which time the head was delivered spontaneously and atraumatically over the perineum with support. Nuchal cord x1 was reduced with subsequent delivery of the infant's anterior and posterior shoulders without any difficulty. The was bulb suctioned by nose and mouth and the cord was clamped x2 and cut after it had ceased to pulsate. The infant was handed to the mother in the presence of the nurse attending delivery. The is a liveborn male, score 7 and 8. Weight is pending at the time of dictation. Dr. Moreira was present at the time of delivery; however, the did not require resuscitation. The cord blood was collected for cord ABGs as well as routine cord blood sampling. Pitocin was initiated after delivery the to assist with delivery of the placenta, which was delivered spontaneously. Schultze intact with 3 vessels. Upon inspection of pelvis and perineum, there were no periurethral, vaginal sidewall, cervical, rectal, or perineal laceration. At 7 o'clock, there was a 1 cm vaginal laceration that was not hemostatic, a single [id number] suture of 3-0 Vicryl was utilized for hemostasis. Final sponge, needle, and instrument counts were reported as correct. There were no known complications. Mother and baby are in LDRP in good condition. NAVEEN / KAREN /[id number]
[2018-02-13] MEDS: Ibuprofen 800 MG Tab PO PRN ×2 (04:34→11:50)
[2018-02-13 08:12] VITALS: BP 135/62
--- NOTE | 2018-02-13 08:19 | PCM.PNPP ---
- General Info Date of Service: 02/13/18 Functional Status: Reports: Pain Controlled, Tolerating Diet, Ambulating, Urinating - Review of Systems General: Denies: Fever, Weakness Pulmonary: Denies: Shortness of Breath Cardiovascular: Denies: Chest Pain, Palpitations, Lightheadedness Gastrointestinal: Reports: Flatus. Denies: Abdominal Pain, Nausea Genitourinary: Denies: Flank Pain Neurological: Reports: No Symptoms Psychiatric: Reports: No Symptoms - General Info Date of Service: 02/13/18 - Patient Data Vital Signs - Most Recent: Last Vital Signs Temp 36.6 C 02/13/18 08:00 Pulse 77 02/13/18 08:00 Resp 16 02/13/18 04:15 BP 135/62 02/13/18 08:00 Pulse Ox 97 02/13/18 04:15 Weight - Most Recent: 103.873 kg Lab Results - Last 24 Hours: Laboratory Results - last 24 hr 02/12/18 02/13/18 Range/Units 11:43 05:42 Hgb 10.3 L (12.0-16.0) g/dL Hct 31.4 L (36.0-46.0) % Cord ABG pH 7.243 (7.18-7.38) Cord ABG Base Excess -5 (-10--2) Cord VBG pH 7.364 (7.25-7.45) Cord VBG Base Excess -4 (-10--2) Med Orders - Current: Current Medications Acetaminophen (Tylenol Extra Strength) 500 mg PO Q4H PRN PRN Reason: Pain Acetaminophen (Tylenol Extra Strength) 1,000 mg PO Q4H PRN PRN Reason: Pain Benzocaine/Menthol (Dermoplast Pain Relief 20%-0.5% [place]) 78 gm TOP ASDIRECTED PRN PRN Reason: Perineal Comfort Measure Bisacodyl (Dulcolax) 10 mg RECTAL .ONCE PRN PRN Reason: Constipation Docusate Sodium (Colace) 100 mg PO BID PRN PRN Reason: Constipation Emollient Ointment (Lansinoh Hpa) 0 gm TOP ASDIRECTED PRN PRN Reason: Sore Nipples Ibuprofen (Motrin) 400 mg PO Q4H PRN PRN Reason: Pain Ibuprofen (Motrin) 800 mg PO Q6H PRN PRN Reason: Pain Last Admin: 02/13/18 04:34 Dose: 800 mg Methylergonovine Maleate (Methergine) 0.2 mg IM ASDIRECTED PRN PRN Reason: Post Hemorrhage Nifedipine (Procardia Xl) 90 mg PO DAILY [facility] Last Admin: 02/12/18 12:44 Dose: 90 mg Oxycodone HCl (Oxycodone) 5 mg PO Q2H PRN PRN Reason: Pain Witch Maggie (Tucks) 1 pad TOP ASDIRECTED PRN PRN Reason: comfort care Discontinued Medications Butorphanol Tartrate (Stadol) 1 mg IVPUSH Q1H PRN PRN Reason: Pain Last Admin: 02/12/18 02:35 Dose: 1 mg Carboprost Tromethamine (Hemabate Ds) 250 mcg IM ASDIRECTED PRN PRN Reason: Post Hemorrhage Ampicillin Sodium 1 gm/ Sodium (Chloride) 50 mls @ 100 mls/hr IV Q4H [facility] Last Admin: 02/12/18 07:52 Dose: 100 mls/hr Lactated Ringer's (Ringers, Lactated) 1,000 mls @ 150 mls/hr IV ASDIRECTED [facility] Last Admin: 02/12/18 08:24 Dose: 300 mls/hr Oxytocin/Sodium Chloride (Oxytocin 30 Unit/500 Ml-Ns) 30 unit in 500 mls @ 500 mls/hr IV TITRATE [facility] Last Admin: 02/12/18 12:46 Dose: 500 mls/hr Tranexamic Acid 1,000 mg/ (Sodium Chloride) 110 mls @ 660 mls/hr IV ONETIME PRN PRN Reason: Bleeding Ampicillin Sodium 2 gm/ Sodium (Chloride) 100 mls @ 200 mls/hr IV NOW STA Stop: 02/11/18 19:59 Last Admin: 02/11/18 19:49 Dose: 200 mls/hr Oxytocin/Sodium Chloride (Oxytocin 30 Unit/500 Ml-Ns) 30 unit in 500 mls @ 2 mls/hr IV TITRATE [facility]; Protocol Last Infusion: 02/12/18 11:43 Dose: 0 munits/min, 0 mls/hr Fentanyl/Bupivacaine HCl (Dnmglukw-Qqzvt-Iv 2 Mcg/Ml-0.125%) Confirm Administered Dose 100 mls @ as directed EP .[facility] ONE Stop: 02/12/18 03:41 Last Admin: 02/12/18 19:31 Dose: Not Given Oxytocin/Sodium Chloride (Oxytocin 30 Unit/500 Ml-Ns) Confirm Administered Dose 30 unit in 500 mls @ as directed .[facility] .[facility] Stop: 02/12/18 12:41 Last Admin: 02/12/18 19:32 Dose: Not Given Lidocaine HCl (Xylocaine 1%) 50 ml INJECT .ONCE PRN PRN Reason: Laceration repair Misoprostol (Cytotec) 200 mcg PO .ONCE PRN PRN Reason: Post Hemorrhage Nalbuphine HCl (Nubain) 10 mg IVPUSH Q1H PRN PRN Reason: Pain (severe 7-10) Sodium Chloride (Saline Flush) 10 ml FLUSH ASDIRECTED PRN PRN Reason: Keep Vein Open Sodium Chloride (Saline Flush) 2.5 ml FLUSH ASDIRECTED PRN PRN Reason: Keep Vein Open Sterile Water (Sterile Water For Irrigation) 1,000 ml IRR ASDIRECTED PRN PRN Reason: delivery Last Admin: 02/12/18 12:45 Dose: 1,000 ml - Infant Interaction Support Person: - Recovery Exam Fundal Tone: Firm Fundal Level: 2 Fingerbreadths Below Umbilicus Fundal Placement: Midline Lochia Amount: Small Lochia Color: Rubra/Red Perineum Description: Redness Episiotomy/Laceration: Approximated Bladder Status: Voiding Urinary Elimination: Voided - Exam General: Alert, Oriented Lungs: Normal Respiratory Effort Cardiovascular: Regular Rate, Regular Rhythm GI/Abdominal Exam: Normal Bowel Sounds, Soft Extremities: Pedal Edema (trace), Mottled. No: Arsalan's Sign Psy/Mental Status: Alert, Normal Affect - Problem List & Annotations (1) Vaginal delivery SNOMED Code(s): 668503067 Code(s): O80 - ENCOUNTER FOR FULL-TERM UNCOMPLICATED DELIVERY Status: Acute Current Visit: Yes - Problem List Review Problem List Initiated/Reviewed/Updated: Yes - My Orders Last 24 Hours: My Active Orders 02/13/18 08:16 Ready for Discharge [RC] PER UNIT ROUTINE - Assessment Assessment:: PPD 1 status post Chronic hypertension - Plan Plan:: Labs are VS are stable overall. Continue procardia as prescribed. May discharge later today. Discharge instructions reviewed. Follow up with Dr Elizondo in 6 weeks. Follow up for BP next week. Patient to call clinic if BP >160/110 at home.
[2018-02-13] MEDS: NIFEdipine 30 MG Tab.ER PO SCH (09:54)
[2018-02-13] MEDS ORDERED: Measles, Mumps & Rubella Vaccine 0.5 ML SDV SUBCUT ONE (14:02)
== END 2018-02-13 15:20 | disposition home or self-care (01) | DRG 560 ==
LOC: MW.OBCHECK 18:15 → MW.OB 18:18 → MW.OBCHECK 18:51 → OBSVTOIN 02-12 11:43
PROVIDERS: ADMIT Obstetrics & Gynecology; ATTEND Obstetrics & Gynecology
PROC: 10E0XZZ Delivery of Products of Conception, External Approach (ICD-10-PCS; principal; 2018-02-12)
PROC: 3E033VJ Introduction of Other Hormone into Peripheral Vein, Percutaneous Approach (ICD-10-PCS; 2018-02-12)
PROC: 0HQ9XZZ Repair Perineum Skin, External Approach (ICD-10-PCS; 2018-02-12)
DX: O10.92 Unspecified pre-existing hypertension complicating childbirth (principal); O70.0 First degree perineal laceration during delivery; O69.1XX0 Labor and delivery complicated by cord around neck, with compression, not applicable or unspecified; Z3A.40 40 weeks gestation of pregnancy; Z37.0 Single live birth
CPT/HCPCS: 36415; 59025; 59409; 80053; 82803; 84550; 85014; 85018; 85027; 86850; 86900; 86901; 90471; 90707; A9270-GY; J0290; J0595; J2590; J7030; J7050; J7120

== ENCOUNTER 2021-05-04 20:01 | Inpatient (IN) | payer BC ==
[2021-05-04] MEDS: Lactated Ringers 1,000 ML IV SCH ×2 (20:30→21:17)
[2021-05-04] MEDS ORDERED: Lidocaine 1% 50 ML MDV INJECT PRN (20:35)
[2021-05-04] MEDS ORDERED: Water For Irrigation,Sterile 1,000 ML Container IRR PRN (20:35)
[2021-05-04] MEDS ORDERED: Carboprost Tromethamine 250 MCG/1 ML Amp IM PRN (20:35)
[2021-05-04] MEDS ORDERED: Sodium Chloride 0.9% 10 ML SDV IV PRN (20:35)
[2021-05-04] MEDS ORDERED: Nalbuphine 10 MG/1 ML Vial IVPUSH PRN (20:35)
[2021-05-04] MEDS ORDERED: Ampicillin 2 GM in Sodium Chloride 0.9% 100 ML IV ONE (20:35)
[2021-05-04] MEDS ORDERED: Tranexamic Acid 1,000 MG in Sodium Chloride 0.9% 100 ML IV PRN (20:35)
[2021-05-04] MEDS ORDERED: Sodium Chloride 0.9% 2.5 ML Syringe FLUSH PRN (20:35)
[2021-05-04] MEDS ORDERED: Methylergonovine 0.2 MG/1 ML Amp IM PRN (20:35)
[2021-05-04] MEDS ORDERED: Sodium Chloride 0.9% 10 ML Syringe FLUSH PRN (20:35)
[2021-05-04] MEDS ORDERED: Misoprostol 200 MCG Tab PO PRN (20:35)
[2021-05-04] MEDS ORDERED: Butorphanol 1 MG/ML SDV IVPUSH PRN (20:35)
[2021-05-04] MEDS ORDERED: Ampicillin 2 GM Vial ONE (20:41)
[2021-05-04] MEDS ORDERED: Sodium Chloride 0.9% 100 ML ONE (20:42)
[2021-05-04] MEDS ORDERED: Ropivacaine HCl/PF 200 ML ONE (20:43)
[2021-05-04] MEDS ORDERED: Oxytocin/0.9 % Sodium Chloride 30 UNIT/500 ML BAG IV SCH (20:45)
--- NOTE | 2021-05-04 20:57 | PCM.LDHP ---
L&D History of Present Illness - General Date of Service: 05/04/21 Admit Problem/Dx: Patient Status Order with Admit Dx/Problem 05/04/21 20:35 Patient Status [ADT] Routine Admission Diagnosis/Problem Admission Diagnosis/Problem Source of Information: Patient History Limitations: Reports: No Limitations - History of Present Illness Introduction:: 30yo @ 39w6d presented with Ctx. Patient has been having mild contractions for 1 day. She was seen in clinic this AM and SVE was 3-4/50/-3 H/o significant for chronic hypertension (on Nifedipine and aspirin) well controlled throughout the . She also was found to be GBS positive. Otherwise unremarkable care: B+, Abs screen neg, RI, RPR NR, HBsAg neg, HIV neg, GC/Chlam neg. Denies VB or LOF. Good FM. - Related Data Allergies/Adverse Reactions: Allergies Allergy/AdvReac Type Severity Reaction Status Date / Time No Known Allergies Allergy Verified 02/11/18 18:47 Home Medications: Home Meds NIFEdipine [Procardia XL] 3 tab PO DAILY 02/13/17 [History] Aspirin [Adult Aspirin] 81 mg PO DAILY 01/11/18 [History] Past Medical History - Past Health History Medical/Surgical History: Denies Medical/Surgical History HEENT History: Reports: Other (See Below) Other HEENT History: Wearing eyeglasses for nearsightedness. Cardiovascular History: Reports: Hypertension Respiratory History: Reports: None Gastrointestinal History: Reports: GERD Genitourinary History: Reports: None SENIOR SOUS CHEF History: Reports: Musculoskeletal History: Reports: None Neurological History: Reports: None Psychiatric History: Reports: None Endocrine/Metabolic History: Reports: Obesity/BMI 30+ Hematologic History: Reports: None Immunologic History: Reports: None Oncologic (Cancer) History: Reports: None Dermatologic History: Reports: None - Infectious Disease History Infectious Disease History: Reports: Chicken Pox - Past Surgical History HEENT Surgical History: Reports: Oral Surgery, Other (See Below) Other HEENT Surgeries/Procedures: tubes inserted inside both ears. Social & Family History - Family History Family Medical History: No Pertinent Family History HEENT: Reports: Cataract Cardiac: Reports: Arrhythmia, Heart Failure, Hypertension, Other (See Below) Respiratory: Reports: Sleep Apnea GI: Reports: None : Reports: Renal Calculus OBGYN: Reports: Musculoskeletal: Reports: Gout Neurological: Reports: Dementia Psychiatric: Reports: None Endocrine/Metabolic: Reports: Diabetes, type II Hematologic: Reports: None Immunologic: Reports: None Dermatologic: Reports: Eczema Oncologic: Reports: Pancreatic - Caffeine Use Caffeine Use: Reports: None H&P Review of Systems - Review of Systems: Review Of Systems: See Below General: Reports: No Symptoms HEENT: Reports: No Symptoms Pulmonary: Reports: No Symptoms Cardiovascular: Reports: No Symptoms Gastrointestinal: Reports: No Symptoms Genitourinary: Reports: No Symptoms Musculoskeletal: Reports: No Symptoms Skin: Reports: No Symptoms Psychiatric: Reports: No Symptoms Neurological: Reports: No Symptoms Hematologic/Lymphatic: Reports: No Symptoms Immunologic: Reports: No Symptoms L&D Exam - Exam Exam: See Below - Vital Signs Weight: 100.244 kg - OB Specific Contraction Intensity: Moderate to Strong Movement: Active Heart Tones: Present Heart Tones per Min: 145 Heart Rate (FHR) Variability: Moderate (6-25 bpm) Presentation: Vertex Estimated Weight: 7 - Kelley Score Eklley Score Cervix Position: Midposition Kelley Score Consistency: Soft Kelley Score Effacement: 51-70% Kelley Score Dilation: > 5 cm Kelley Score 's Station: -1 ,0 Kelley Score Total: 10 - Exam General: Alert, Oriented Lungs: Normal Respiratory Effort Cardiovascular: Regular Rate Psychiatric: Alert, Normal Affect, Normal Mood - Problem List (1) Active labor at term SNOMED Code(s): 03037054 ICD Code: [id number] - Status: Acute Current Visit: Yes (2) GBS carrier SNOMED Code(s): 1490336401494 ICD Code: Z22.330 - CARRIER OF GROUP B STREPTOCOCCUS Status: Acute Current Visit: Yes Problem List Initiated/Reviewed/Updated: Yes Orders Last 24hrs: Active Orders 24 hr Category Date Time Status Patient Status [ADT] Routine ADT 05/04/21 20:35 Active Heart Tones [RC] CONTINUOUS Care 05/04/21 20:35 Active Non Stress Test [RC] PER UNIT ROUTINE Care 05/04/21 20:35 Active May Shower [RC] ASDIRECTED Care 05/04/21 20:35 Active Notify Provider [RC] PRN Care 05/04/21 20:35 Active Up ad Piedad [RC] ASDIRECTED Care 05/04/21 20:35 Active Vaginal Exam [RC] PRN Care 05/04/21 20:35 Active Vital Signs [RC] PER UNIT ROUTINE Care 05/04/21 20:35 Active CBC W/O DIFF,HEMOGRAM [HEME] Routine Lab 05/04/21 20:35 Ordered CORONAVIRUS COVID-19 SHAINA [MOLEC] Routine Lab 05/04/21 20:39 Ordered RPR (SYPHILIS SERO) W/ RFLX [REF] Routine Lab 05/04/21 20:35 Ordered TYPE AND SCREEN [BBK] Routine Lab 05/04/21 20:35 Ordered Ampicillin 2 gm Med 05/04/21 20:35 Active Sodium Chloride 0.9% [Normal Saline] 100 ml IV ONETIME Butorphanol [Stadol] Med 05/04/21 20:35 Active 1 mg IVPUSH Q1H PRN Carboprost Tromethamine [Hemabate DS] Med 05/04/21 20:35 Active 250 mcg IM ASDIRECTED PRN Lactated Ringers [Ringers, Lactated] 1,000 ml Med 05/04/21 20:45 Active IV ASDIRECTED Lidocaine 1% [Xylocaine 1%] Med 05/04/21 20:35 Active 50 ml INJECT ONETIME PRN Methylergonovine [Methergine] Med 05/04/21 20:35 Active 0.2 mg IM ASDIRECTED PRN Nalbuphine [Nubain] Med 05/04/21 20:35 Active 10 mg IVPUSH Q1H PRN Oxytocin/0.9 % Sodium Chloride [Oxytocin 30 Unit/500 ML Med 05/04/21 20:45 Active -NS] 30 unit in 500 ml IV TITRATE Sodium Chloride 0.9% [Normal Saline] Med 05/04/21 20:35 Active 10 ml IV ASDIRECTED PRN Sodium Chloride 0.9% [Saline Flush] Med 05/04/21 20:35 Active 10 ml FLUSH ASDIRECTED PRN Sodium Chloride 0.9% [Saline Flush] Med 05/04/21 20:35 Active 2.5 ml FLUSH ASDIRECTED PRN Tranexamic Acid [Cyklokapron] 1,000 mg Med 05/04/21 20:35 Active Sodium Chloride 0.9% [Normal Saline] 100 ml IV ONETIME Water For Irrigation,Sterile [Sterile Water for Med 05/04/21 20:35 Active Irrigation] 1,000 ml IRR ASDIRECTED PRN miSOPROStoL [Cytotec] Med 05/04/21 20:35 Active 200 mcg PO ONETIME PRN Scalp Electrode [WOMSER] Per Unit Routine Oth 05/04/21 20:35 Ordered Peripheral IV Insertion Adult [OM.PC] Routine Oth 05/04/21 20:35 Ordered Resuscitation Status Routine Resus Stat 05/04/21 20:35 Ordered Medication Orders Butorphanol Tartrate (Butorphanol 1 Mg/Ml Sdv) 1 mg IVPUSH Q1H PRN PRN Reason: Pain (severe 7-10) Carboprost Tromethamine (Carboprost Tromethamine 250 Mcg/1 Ml Amp) 250 mcg IM ASDIRECTED PRN PRN Reason: Post Hemorrhage Oxytocin/Sodium Chloride (Oxytocin 30 Unit/500 Ml-Ns) 30 unit in 500 mls @ 500 mls/hr IV TITRATE GRACIELA Tranexamic Acid 1,000 mg/ (Sodium Chloride) 110 mls @ 660 mls/hr IV ONETIME PRN PRN Reason: Bleeding Ampicillin Sodium 2 gm/ Sodium (Chloride) 100 mls @ 200 mls/hr IV ONETIME ONE Stop: 05/04/21 21:04 Lactated Ringer's (Ringers, Lactated) 1,000 mls @ 150 mls/hr IV ASDIRECTED GRACIELA Lidocaine HCl (Lidocaine 1% 50 Ml Mdv) 50 ml INJECT ONETIME PRN PRN Reason: Laceration repair Methylergonovine Maleate (Methylergonovine 0.2 Mg/1 Ml Amp) 0.2 mg IM ASDIRECTED PRN PRN Reason: Post Hemorrhage Misoprostol (Misoprostol 200 Mcg Tab) 200 mcg PO ONETIME PRN PRN Reason: Post Hemorrhage Nalbuphine HCl (Nalbuphine 10 Mg/1 Ml Vial) 10 mg IVPUSH Q1H PRN PRN Reason: Pain (severe 7-10) Sodium Chloride (Sodium Chloride 0.9% 10 Ml Syringe) 10 ml FLUSH ASDIRECTED PRN PRN Reason: Keep Vein Open Sodium Chloride (Sodium Chloride 0.9% 2.5 Ml Syringe) 2.5 ml FLUSH ASDIRECTED PRN PRN Reason: Keep Vein Open Sodium Chloride (Sodium Chloride 0.9% 10 Ml Sdv) 10 ml IV ASDIRECTED PRN PRN Reason: IV Use Sterile Water (Water For Irrigation,Sterile 1,000 Ml Container) 1,000 ml IRR ASDIRECTED PRN PRN Reason: delivery Assessment/Plan Comment:: 30yo @ 39w6d here is active labor. Kelley score 10 Cat 2 tracing (variable decels, with good variability and good accels). Expectant management Antibiotics started for GBS PPx Epidural PRN
--- NOTE | 2021-05-04 21:05 | PCM.POSTAN ---
POST ANESTHESIA ASSESSMENT - MENTAL STATUS Mental Status: Alert, Oriented - RESPIRATORY Respiratory Status: Respiratory Rate WNL, Airway Patent, O2 Saturation Stable - CARDIOVASCULAR CV Status: Pulse Rate WNL, Blood Pressure Stable - GASTROINTESTINAL GI Status: No Symptoms - POST OP HYDRATION Hydration Status: Adequate & Stable
--- NOTE | 2021-05-04 21:05 | PCM.PREANE ---
Preanesthetic Assessment - Anesthesia/Transfusion/Family Hx Anesthesia History: Prior Anesthesia Without Reaction Family History of Anesthesia Reaction: No Transfusion History: No Prior Transfusion(s) - Review of Systems General: No Symptoms Pulmonary: No Symptoms Cardiovascular: No Symptoms Gastrointestinal: No Symptoms Neurological: No Symptoms Other: Reports: None - Physical Assessment Height: 5 ft 7 in Weight: 221 lb ASA Class: 2 Mental Status: Alert & Oriented x3 Airway Class: Mallampati = 3 Dentition: Reports: Normal Dentition ROM/Head Extension: Full Lungs: Clear to Auscultation, Normal Respiratory Effort Cardiovascular: Regular Rate, Regular Rhythm - Allergies Allergies/Adverse Reactions: Allergies Allergy/AdvReac Type Severity Reaction Status Date / Time No Known Allergies Allergy Verified 02/11/18 18:47 - Blood Blood Available: Yes Product(s) Available: PRBC, FFP, Platelets - Anesthesia Plan Pre-Op Medication Ordered: None - Acknowledgements Anesthesia Type Planned: Epidural Pt an Appropriate Candidate for the Planned Anesthesia: Yes Alternatives and Risks of Anesthesia Discussed w Pt/Guardian: Yes Pt/Guardian Understands and Agrees with Anesthesia Plan: Yes PreAnesthesia Questionnaire - Past Health History Medical/Surgical History: Denies Medical/Surgical History HEENT History: Reports: Other (See Below) Other HEENT History: Wearing eyeglasses for nearsightedness. 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 - HOME MEDS Home Medications: Home Meds NIFEdipine [Procardia XL] 3 tab PO DAILY 02/13/17 [History] Aspirin [Adult Aspirin] 81 mg PO DAILY 01/11/18 [History] - CURRENT (IN HOUSE) MEDS Current Meds: Current Medications Butorphanol Tartrate (Butorphanol 1 Mg/Ml Sdv) 1 mg IVPUSH Q1H PRN PRN Reason: Pain (severe 7-10) Carboprost Tromethamine (Carboprost Tromethamine 250 Mcg/1 Ml Amp) 250 mcg IM ASDIRECTED PRN PRN Reason: Post Hemorrhage Oxytocin/Sodium Chloride (Oxytocin 30 Unit/500 Ml-Ns) 30 unit in 500 mls @ 500 mls/hr IV TITRATE [facility] Tranexamic Acid 1,000 mg/ (Sodium Chloride) 110 mls @ 660 mls/hr IV ONETIME PRN PRN Reason: Bleeding Ampicillin Sodium 2 gm/ Sodium (Chloride) 100 mls @ 200 mls/hr IV ONETIME ONE Stop: 05/04/21 21:04 Lactated Ringer's (Ringers, Lactated) 1,000 mls @ 150 mls/hr IV ASDIRECTED [facility] Lidocaine HCl (Lidocaine 1% 50 Ml Mdv) 50 ml INJECT ONETIME PRN PRN Reason: Laceration repair Methylergonovine Maleate (Methylergonovine 0.2 Mg/1 Ml Amp) 0.2 mg IM ASDIRE CTED PRN PRN Reason: Post Hemorrhage Misoprostol (Misoprostol 200 Mcg Tab) 200 mcg PO ONETIME PRN PRN Reason: Post Hemorrhage Nalbuphine HCl (Nalbuphine 10 Mg/1 Ml Vial) 10 mg IVPUSH Q1H PRN PRN Reason: Pain (severe 7-10) Sodium Chloride (Sodium Chloride 0.9% 10 Ml Syringe) 10 ml FLUSH ASDIRECTED PRN PRN Reason: Keep Vein Open Sodium Chloride (Sodium Chloride 0.9% 2.5 Ml Syringe) 2.5 ml FLUSH ASDIRECTED PRN PRN Reason: Keep Vein Open Sodium Chloride (Sodium Chloride 0.9% 10 Ml Sdv) 10 ml IV ASDIRECTED PRN PRN Reason: IV Use Sterile Water (Water For Irrigation,Sterile 1,000 Ml Container) 1,000 ml IRR ASDIRECTED PRN PRN Reason: delivery Discontinued Medications Ampicillin Sodium (Ampicillin 2 Gm Vial) Confirm Administered Dose 2 gm .ROUTE .STK-MED ONE Stop: 05/04/21 20:42 Sodium Chloride (Normal Saline) Confirm Administered Dose 100 mls @ as directed .ROUTE .STMyRealTrip-MED ONE Stop: 05/04/21 20:43 Ropivacaine (Naropin 0.2%) Confirm Administered Dose 200 mls @ as directed .ROUTE .STMyRealTrip-MED ONE Stop: 05/04/21 20:44 - Pre-Procedure Checklist Attending Provider Aware: Yes Chart Reviewed: Yes Consent Signed: Yes Labs Reviewed: Yes VS/FHR Reviewed: Yes Patient Identification Confirmation Method: Reports: Verbal Patient Pt an Appropriate Candidate for the Planned Anesthesia: Yes Alternatives and Risks of Anesthesia Discussed w Pt/Guardian: Yes - Procedure Procedure Start Date: 05/04/21 Procedure Start Time: 20:[address]: Reports: Blood Pressure, Heart Rate, SPO2 Functional IV: Yes Safety Measures: Reports: Patient Identified, Procedure Verified, Site Verified, Procedure Time Out Patient Position: Reports: Sitting Prep: Reports: Betadine x3, Sterile Drape Local Anesthetic: Reports: Intradermal Wheal w Lidocaine 1% Regional Placement Level: Reports: L3-4 Needle: Reports: 17 g Touhy Approach: Reports: Midline Technique: Reports: FEDE Plastic Syringe Parasthesia: Reports: None Fluid Obtained: Reports: None Test Dose Time: 20:51 Test Dose Medication: Reports: Lidocaine 1.5% w Epinephrine 1:200,000 Test Dose Response: Reports: Negative Loading Dose Time: 20:50 Loading Dose Medication: bupivicaine 0.25% 10cc Loading Dose Patient Position: sitting Continuous Infusion Start Time: 20:55 Continuous Infusion Medication: ropivicaine 0.2% Continuous Infusion Rate: 16 Continuous Infusion PCS Bolus Option: 4 VS and FHR Monitored in Unit Post Placement: Yes Procedure End Date: 05/04/21 Procedure End Time: 21:49
[2021-05-04] MEDS ORDERED: Lanolin 100% Cream 7 GM Tube TOP PRN (23:11)
[2021-05-04] MEDS ORDERED: Witch Hazel Medicated Pads 40/Jar TOP PRN (23:11)
[2021-05-04] MEDS ORDERED: Ibuprofen 400 MG Tab PO PRN (23:11)
[2021-05-04] MEDS ORDERED: Acetaminophen 500 MG Tab PO PRN ×2 (23:11)
[2021-05-04] MEDS ORDERED: Bisacodyl 10 MG Supp RECTAL PRN (23:11)
[2021-05-04] MEDS ORDERED: Benzocaine/Menthol 20%-0.5% Spray 78 GM Cannister TOP PRN (23:11)
--- NOTE | 2021-05-04 23:27 | PCM.DEL ---
L & D Note - General Info Date of Service: 05/04/21 Mother's Due Date: 05/05/21 - Delivery Note Labor: Spontaneous Delivery Outcome: Livebirth Infant Delivery Method: Spontaneous Vaginal Delivery-Single Presentation: Vertex Nuchal Cord: None Anesthesia Type: Epidural Amniotic Fluid Description: Clear Episiotomy Type: None Laceration: None Placenta: Intact Cord: 3 Vessels Estimated Blood Loss: 400 Resuscitation Needed: No : Suctioned Score 1 min: 8 Score 5 min: 9 Delivery Comments (Free Text/Narrative):: 30yo G3 now P3003 after @ 39w 6d [place] course was complicated by chronic HTN, well controlled. Patient was also GBS positive and had received abx x1 2.5hrs prior to delivery of a live female, 6lb 8oz and Apgars 8/9. No nuchal cord, terminal meconium. Baby delivered by nurse. Nurse reports at some point, monitor stopped showing the FHT. she came in the room to fix it. When she lifted the blanket, she noted the head of the had delivered. Mom pushed to deliver the shoulders. Umbilical cord was cut and baby's nose and mouth bulb suctioned; I arrived a few minuted after the delivery, and baby was on Mom's chest. Placenta delivered spontaneously, intact. Fundus firm, moderate bleeding. Place nta appears intact with 3 vessel cord. Perineum and vagina inspected No lacerations. EBL 400cc. Hemostasis. Patient tolerated procedure well, recovering in LDR. Infant by her side. - General Info Date of Service: 05/04/21 Admission Dx/Problem (Free Text): Patient Status Order with Admit Dx/Problem 05/04/21 20:35 Patient Status [ADT] Routine Admission Diagnosis/Problem Admission Diagnosis/Problem Subjective Update: 30yo G3 now P3003 after uncomplicated @ 39w 5d GA. Doing well, Resting in the room with infant. Functional Status: Reports: Pain Controlled - Review of Systems General: Reports: No Symptoms HEENT: Reports: No Symptoms Cardiovascular: Reports: No Symptoms Gastrointestinal: Reports: No Symptoms Genitourinary: Reports: No Symptoms Musculoskeletal: Reports: No Symptoms Skin: Reports: No Symptoms Neurological: Reports: No Symptoms Psychiatric: Reports: No Symptoms - Patient Data Weight - Most Recent: 100.244 kg Lab Results Last 24 Hours: Laboratory Results - last 24 hr 05/04/21 05/04/21 05/04/21 Range/Units 20:18 20:20 20:20 WBC 20.33 H (4.0-11.0) K/uL RBC 4.44 (4.30-5.90) M/uL Hgb 13.4 (12.0-16.0) g/dL Hct 38.0 (36.0-46.0) % MCV 85.6 (80.0-98.0) fL MCH 30.2 (27.0-32.0) pg MCHC 35.3 (31.0-37.0) g/dL RDW Std Deviation 41.1 (28.0-62.0) fl RDW Coeff of Efrain 13 (11.0-15.0) % Plt Count 408 H (150-400) K/uL MPV 10.30 (7.40-12.00) fL Nucleated RBC % 0.0 /100WBC Nucleated RBCs # 0 K/uL SARS-CoV-2 RNA (SHAINA) NEGATIVE (NEGATIVE) Blood Type B POSITIVE Antibody Screen NEGATIVE Med Orders - Current: Current Medications Butorphanol Tartrate (Butorphanol 1 Mg/Ml Sdv) 1 mg IVPUSH Q1H PRN PRN Reason: Pain (severe 7-10) Carboprost Tromethamine (Carboprost Tromethamine 250 Mcg/1 Ml Amp) 250 mcg IM ASDIRECTED PRN PRN Reason: Post Hemorrhage Oxytocin/Sodium Chloride (Oxytocin 30 Unit/500 Ml-Ns) 30 unit in 500 mls @ 500 mls/hr IV TITRATE [facility] Tranexamic Acid 1,000 mg/ (Sodium Chloride) 110 mls @ 660 mls/hr IV ONETIME PRN PRN Reason: Bleeding Lactated Ringer's (Ringers, Lactated) 1,000 mls @ 150 mls/hr IV ASDIRECTED [facility] Last Admin: 05/04/21 21:17 Dose: 150 mls/hr Documented by: Lidocaine HCl (Lidocaine 1% 50 Ml Mdv) 50 ml INJECT ONETIME PRN PRN Reason: Laceration repair Methylergonovine Maleate (Methylergonovine 0.2 Mg/1 Ml Amp) 0.2 mg IM ASDIRECTED PRN PRN Reason: Post Hemorrhage Misoprostol (Misoprostol 200 Mcg Tab) 200 mcg PO ONETIME PRN PRN Reason: Post Hemorrhage Nalbuphine HCl (Nalbuphine 10 Mg/1 Ml Vial) 10 mg IVPUSH Q1H PRN PRN Reason: Pain (severe 7-10) Sodium Chloride (Sodium Chloride 0.9% 10 Ml Syringe) 10 ml FLUSH ASDIRECTED PRN PRN Reason: Keep Vein Open Sodium Chloride (Sodium Chloride 0.9% 2.5 Ml Syringe) 2.5 ml FLUSH ASDIRECTED PRN PRN Reason: Keep Vein Open Sodium Chloride (Sodium Chloride 0.9% 10 Ml Sdv) 10 ml IV ASDIRECTED PRN PRN Reason: IV Use Sterile Water (Water For Irrigation,Sterile 1,000 Ml Container) 1,000 ml IRR ASDIRECTED PRN PRN Reason: delivery Discontinued Medications Ampicillin Sodium (Ampicillin 2 Gm Vial) Confirm Administered Dose 2 gm .ROUTE .STK-MED ONE Stop: 05/04/21 20:42 Ampicillin Sodium 2 gm/ Sodium (Chloride) 100 mls @ 200 mls/hr IV ONETIME ONE Stop: 05/04/21 21:04 Last Admin: 05/04/21 20:44 Dose: 200 mls/hr Documented by: Sodium Chloride (Normal Saline) Confirm Administered Dose 100 mls @ as directed .ROUTE .STK-MED ONE Stop: 05/04/21 20:43 Ropivacaine (Naropin 0.2%) Confirm Administered Dose 200 mls @ as directed .ROUTE .STK-MED ONE Stop: 05/04/21 20:44 - Exam General: Alert, Oriented Lungs: Normal Respiratory Effort Cardiovascular: Regular Rate GI/Abdominal Exam: Soft, Non-Tender Extremities: Normal Inspection Neurological: No New Focal Deficit Psy/Mental Status: Alert, Normal Affect - Problem List & Annotations (1) GBS carrier SNOMED Code(s): 6979425429549 Code(s): Z22.330 - CARRIER OF GROUP B STREPTOCOCCUS Status: Acute Priority: High Current Visit: Yes (2) (normal spontaneous vaginal delivery) SNOMED Code(s): 65107967, 605492441 Code(s): O80 - ENCOUNTER FOR FULL-TERM UNCOMPLICATED DELIVERY Status: Acute Priority: Medium Current Visit: Yes - Problem List Review Problem List Initiated/Reviewed/Updated: Yes - My Orders Last 24 Hours: My Active Orders 05/04/21 20:20 RPR (SYPHILIS SERO) W/ RFLX [REF] Routine 05/04/21 20:35 Heart Tones [RC] CONTINUOUS Non Stress Test [RC] PER UNIT ROUTINE May Shower [RC] ASDIRECTED Notify Provider [RC] PRN Up ad Piedad [RC] ASDIRECTED Vaginal Exam [RC] PRN Vital Signs [RC] PER UNIT ROUTINE Butorphanol [Stadol] 1 mg IVPUSH Q1H PRN Carboprost Tromethamine [Hemabate DS] 250 mcg IM ASDIRECTED PRN Lidocaine 1% [Xylocaine 1%] 50 ml INJECT ONETIME PRN Methylergonovine [Methergine] 0.2 mg IM ASDIRECTED PRN Nalbuphine [Nubain] 10 mg IVPUSH Q1H PRN Sodium Chloride 0.9% [Normal Saline] 10 ml IV ASDIRECTED PRN Sodium Chloride 0.9% [Saline Flush] 10 ml FLUSH ASDIRECTED PRN Sodium Chloride 0.9% [Saline Flush] 2.5 ml FLUSH ASDIRECTED PRN Tranexamic Acid [Cyklokapron] 1,000 mg Sodium Chloride 0.9% [Normal Saline] 100 ml IV ONETIME Water For Irrigation,Sterile [Sterile Water for Irrigation] 1,000 ml IRR ASDIRECTED PRN miSOPROStoL [Cytotec] 200 mcg PO ONETIME PRN Scalp Electrode [WOMSER] Per Unit Routine Peripheral IV Insertion Adult [OM.PC] Routine Resuscitation Status Routine 05/04/21 20:45 Lactated Ringers [Ringers, Lactated] 1,000 ml IV ASDIRECTED Oxytocin/0.9 % Sodium Chloride [Oxytocin 30 Unit/500 ML-NS] 30 unit in 500 ml IV TITRATE 05/04/21 23:11 Acetaminophen [Tylenol Extra Strength] 1,000 mg PO Q4H PRN Acetaminophen [Tylenol Extra Strength] 500 mg PO Q4H PRN Benzocaine/Menthol [Dermoplast Pain Relief 20%-0.5% [place]] 78 gm TOP ASDIRECTED PRN Docusate Sodium [Colace] 100 mg PO Q12H PRN Ibuprofen [Motrin] 400 mg PO Q4H PRN Ibuprofen [Motrin] 800 mg PO Q6H PRN Lanolin [Lansinoh HPA] See Dose Instructions TOP ASDIRECTED PRN bisacodyL [Dulcolax] 10 mg RECTAL ONETIME PRN amy González [Tucks] 1 pad TOP ASDIRECTED PRN 05/04/21 23:12 Patient Status [ADT] Routine May Shower [RC] ASDIRECTED Up ad Piedad [RC] ASDIRECTED Vital Signs [RC] PER UNIT ROUTINE Assess Lochia [WOMSER] Per Unit Routine Assess Uterine Involution [WOMSER] Per Unit Routine Peripheral IV Discontinue [OM.PC] Routine 05/05/21 05:11 HEMOGLOBIN/HEMATOCRIT,HH [HEME] Timed - Plan Plan:: 30yo G3 now P3003 after uncomplicated @ 39w 5d [place] Routine care. Close monitoring of BPs Will continue patient home BP med.
[2021-05-05] MEDS: Ibuprofen 800 MG Tab PO PRN ×2 (05:13→23:29)
--- NOTE | 2021-05-05 07:40 | PCM48HPAN ---
Post Anesthesia Note - EVALUATION WITHIN 48HRS OF ANESTHETIC Vital Signs in Normal Range: Yes Patient Participated in Evaluation: Yes Respiratory Function Stable: Yes Airway Patent: Yes Cardiovascular Function Stable: Yes Hydration Status Stable: Yes Pain Control Satisfactory: Yes Nausea and Vomiting Control Satisfactory: Yes Mental Status Recovered: Yes Vital Signs: Last Vital Signs Temp 98.0 F 05/05/21 07:36 Pulse 73 05/05/21 07:36 Resp 16 05/05/21 07:36 BP 145/79 H 05/05/21 07:36 Pulse Ox 97 05/05/21 07:36
[2021-05-05] MEDS: NIFEdipine 30 MG Tab.ER PO SCH (09:15)
--- NOTE | 2021-05-05 17:37 | PCM.PNPP ---
- General Info Date of Service: 05/05/21 Admission Dx/Problem (Free Text): Patient Status Order with Admit Dx/Problem 05/04/21 20:35 Patient Status [ADT] Routine Admission Diagnosis/Problem Admission Diagnosis/Problem Subjective Update: 30yo G3 now P3003 after uncomplicated @ 39w 5d GA. Doing well, Resting in the room with . Functional Status: Reports: Pain Controlled - Review of Systems General: Reports: No Symptoms HEENT: Reports: No Symptoms Pulmonary: Reports: No Symptoms Cardiovascular: Reports: No Symptoms Gastrointestinal: Reports: No Symptoms Genitourinary: Reports: No Symptoms Musculoskeletal: Reports: No Symptoms Skin: Reports: No Symptoms Neurological: Reports: No Symptoms Psychiatric: Reports: No Symptoms - General Info Date of Service: 05/05/21 - Patient Data Vital Signs - Most Recent: Last Vital Signs Temp 97.6 F 05/05/21 16:00 Pulse 79 05/05/21 16:00 Resp 18 05/05/21 16:00 BP 149/87 H 05/05/21 16:35 Pulse Ox 97 05/05/21 16:00 Weight - Most Recent: 100.244 kg Lab Results - Last 24 Hours: Laboratory Results - last 24 hr 05/04/21 05/04/21 05/04/21 Range/Units 20:18 20:20 20:20 WBC 20.33 H (4.0-11.0) K/uL RBC 4.44 (4.30-5.90) M/uL Hgb 13.4 (12.0-16.0) g/dL Hct 38.0 (36.0-46.0) % MCV 85.6 (80.0-98.0) fL MCH 30.2 (27.0-32.0) pg MCHC 35.3 (31.0-37.0) g/dL RDW Std Deviation 41.1 (28.0-62.0) fl RDW Coeff of Efrain 13 (11.0-15.0) % Plt Count 408 H (150-400) K/uL MPV 10.30 (7.40-12.00) fL Nucleated RBC % 0.0 /100WBC Nucleated RBCs # 0 K/uL SARS-CoV-2 RNA (SHAINA) NEGATIVE (NEGATIVE) Blood Type B POSITIVE Antibody Screen NEGATIVE 05/05/21 Range/Units 05:41 WBC (4.0-11.0) K/uL RBC (4.30-5.90) M/uL Hgb 10.6 L (12.0-16.0) g/dL Hct 30.7 L (36.0-46.0) % MCV (80.0-98.0) fL MCH (27.0-32.0) pg MCHC (31.0-37.0) g/dL RDW Std Deviation (28.0-62.0) fl RDW Coeff of Efrain (11.0-15.0) % Plt Count (150-400) K/uL MPV (7.40-12.00) fL Nucleated RBC % /100WBC Nucleated RBCs # K/uL SARS-CoV-2 RNA (SHAINA) (NEGATIVE) Blood Type Antibody Screen Med Orders - Current: Current Medications Acetaminophen (Acetaminophen 500 Mg Tab) 500 mg PO Q4H PRN PRN Reason: Pain (mild 1-3) Acetaminophen (Acetaminophen 500 Mg Tab) 1,000 mg PO Q4H PRN PRN Reason: Pain (mild 1-3) Benzocaine/Menthol (Benzocaine/Menthol 20%-0.5% [place] 78 Gm Cannister) 78 gm TOP ASDIRECTED PRN PRN Reason: Perineal Comfort Measure Bisacodyl (Bisacodyl 10 Mg Supp) 10 mg RECTAL ONETIME PRN PRN Reason: Constipation Butorphanol Tartrate (Butorphanol 1 Mg/Ml Sdv) 1 mg IVPUSH Q1H PRN PRN Reason: Pain (severe 7-10) Carboprost Tromethamine (Carboprost Tromethamine 250 Mcg/1 Ml Amp) 250 mcg IM ASDIRECTED PRN PRN Reason: Post Hemorrhage Docusate Sodium (Docusate Sodium 100 Mg Cap) 100 mg PO Q12H PRN PRN Reason: Constipation Emollient Ointment (Lanolin 100% Cream 7 Gm Tube) 0 gm TOP ASDIRECTED PRN PRN Reason: Sore Nipples Last Admin: 05/05/21 09:15 Dose: 1 applic Documented by: Oxytocin/Sodium Chloride (Oxytocin 30 Unit/500 Ml-Ns) 30 unit in 500 mls @ 500 mls/hr IV TITRATE [facility] Last Infusion: 05/04/21 23:05 Dose: 500 mls/hr Documented by: Tranexamic Acid 1,000 mg/ (Sodium Chloride) 110 mls @ 660 mls/hr IV ONETIME PRN PRN Reason: Bleeding Lactated Ringer's (Ringers, Lactated) 1,000 mls @ 150 mls/hr IV ASDIRECTED [facility] Last Admin: 05/04/21 21:17 Dose: 150 mls/hr Documented by: Ibuprofen (Ibuprofen 400 Mg Tab) 400 mg PO Q4H PRN PRN Reason: Pain (mild 1-3) Ibuprofen (Ibuprofen 800 Mg Tab) 800 mg PO Q6H PRN PRN Reason: Pain (mild 1-3) Last Admin: 05/05/21 05:13 Dose: 800 mg Documented by: Lidocaine HCl (Lidocaine 1% 50 Ml Mdv) 50 ml INJECT ONETIME PRN PRN Reason: Laceration repair Methylergonovine Maleate (Methylergonovine 0.2 Mg/1 Ml Amp) 0.2 mg IM ASDIRECTED PRN PRN Reason: Post Hemorrhage Misoprostol (Misoprostol 200 Mcg Tab) 200 mcg PO ONETIME PRN PRN Reason: Post Hemorrhage Nalbuphine HCl (Nalbuphine 10 Mg/1 Ml Vial) 10 mg IVPUSH Q1H PRN PRN Reason: Pain (severe 7-10) Nifedipine (Nifedipine 30 Mg Tab.Er) 60 mg PO DAILY [facility] Last Admin: 05/05/21 09:15 Dose: 60 mg Documented by: Sodium Chloride (Sodium Chloride 0.9% 10 Ml Syringe) 10 ml FLUSH ASDIRECTED PRN PRN Reason: Keep Vein Open Sodium Chloride (Sodium Chloride 0.9% 2.5 Ml Syringe) 2.5 ml FLUSH ASDIRECTED PRN PRN Reason: Keep Vein Open Sodium Chloride (Sodium Chloride 0.9% 10 Ml Sdv) 10 ml IV ASDIRECTED PRN PRN Reason: IV Use Sterile Water (Water For Irrigation,Sterile 1,000 Ml Container) 1,000 ml IRR ASDIRECTED PRN PRN Reason: delivery Witch Maggie (Witch Maggie Medicated Pads 40/Jar) 1 pad TOP ASDIRECTED PRN PRN Reason: comfort care Last Admin: 05/05/21 09:16 Dose: 1 applic Documented by: Discontinued Medications Ampicillin Sodium (Ampicillin 2 Gm Vial) Confirm Administered Dose 2 gm .ROUTE .STK-MED ONE Stop: 05/04/21 20:42 Last Admin: 05/04/21 23:59 Dose: Not Given Documented by: Ampicillin Sodium 2 gm/ Sodium (Chloride) 100 mls @ 200 mls/hr IV ONETIME ONE Stop: 05/04/21 21:04 Last Admin: 05/04/21 20:44 Dose: 200 mls/hr Documented by: Sodium Chloride (Normal Saline) Confirm Administered Dose 100 mls @ as directed .ROUTE .STK-MED ONE Stop: 05/04/21 20:43 Last Admin: 05/04/21 23:59 Dose: Not Given Documented by: Ropivacaine (Naropin 0.2%) Confirm Administered Dose 200 mls @ as directed .ROUTE .STK-MED ONE Stop: 05/04/21 20:44 Last Admin: 05/05/21 10:24 Dose: Not Given Documented by: - Infant Interaction Support Person: - Recovery Exam Fundal Tone: Firm Fundal Level: 2 Fingerbreadths Below Umbilicus Fundal Placement: Midline Lochia Amount: Scant Lochia Color: Rubra/Red Perineum Description: Intact, Minimal Bruising/Swelling Episiotomy/Laceration: None Bladder Status: Voiding - Exam General: Alert, Oriented Lungs: Normal Respiratory Effort Cardiovascular: Regular Rate GI/Abdominal Exam: Soft, Non-Tender Extremities: Normal Inspection Psy/Mental Status: Alert, Normal Affect, Normal Mood - Problem List & Annotations (1) GBS carrier SNOMED Code(s): 9178834815134 Code(s): Z22.330 - CARRIER OF GROUP B STREPTOCOCCUS Status: Acute Priority: High (2) (normal spontaneous vaginal delivery) SNOMED Code(s): 03112913, [id number] Code(s): O80 - ENCOUNTER FOR FULL-TERM UNCOMPLICATED DELIVERY Status: Acute Priority: High - Problem List Review Problem List Initiated/Reviewed/Updated: Yes - My Orders Last 24 Hours: My Active Orders 05/04/21 20:20 RPR (SYPHILIS SERO) W/ RFLX [REF] Routine 05/04/21 20:35 May Shower [RC] ASDIRECTED Notify Provider [RC] PRN Up ad Piedad [RC] ASDIRECTED Butorphanol [Stadol] 1 mg IVPUSH Q1H PRN Carboprost Tromethamine [Hemabate DS] 250 mcg IM ASDIRECTED PRN Lidocaine 1% [Xylocaine 1%] 50 ml INJECT ONETIME PRN Methylergonovine [Methergine] 0.2 mg IM ASDIRECTED PRN Nalbuphine [Nubain] 10 mg IVPUSH Q1H PRN Sodium Chloride 0.9% [Normal Saline] 10 ml IV ASDIRECTED PRN Sodium Chloride 0.9% [Saline Flush] 10 ml FLUSH ASDIRECTED PRN Sodium Chloride 0.9% [Saline Flush] 2.5 ml FLUSH ASDIRECTED PRN Tranexamic Acid [Cyklokapron] 1,000 mg Sodium Chloride 0.9% [Normal Saline] 100 ml IV ONETIME Water For Irrigation,Sterile [Sterile Water for Irrigation] 1,000 ml IRR ASDI RECTED PRN miSOPROStoL [Cytotec] 200 mcg PO ONETIME PRN Scalp Electrode [WOMSER] Per Unit Routine Peripheral IV Insertion Adult [OM.PC] Routine Resuscitation Status Routine 05/04/21 20:45 Lactated Ringers [Ringers, Lactated] 1,000 ml IV ASDIRECTED Oxytocin/0.9 % Sodium Chloride [Oxytocin 30 Unit/500 ML-NS] 30 unit in 500 ml IV TITRATE 05/04/21 23:11 Acetaminophen [Tylenol Extra Strength] 1,000 mg PO Q4H PRN Acetaminophen [Tylenol Extra Strength] 500 mg PO Q4H PRN Benzocaine/Menthol [Dermoplast Pain Relief 20%-0.5% [place]] 78 gm TOP ASDIRECTED PRN Docusate Sodium [Colace] 100 mg PO Q12H PRN Ibuprofen [Motrin] 400 mg PO Q4H PRN Ibuprofen [Motrin] 800 mg PO Q6H PRN Lanolin [Lansinoh HPA] See Dose Instructions TOP ASDIRECTED PRN bisacodyL [Dulcolax] 10 mg RECTAL ONETIME PRN witch Maggie [Tucks] 1 pad TOP ASDIRECTED PRN 05/04/21 23:12 Patient Status [ADT] Routine Vital Signs [RC] Q4H Assess Lochia [WOMSER] Per Unit Routine Assess Uterine Involution [WOMSER] Per Unit Routine Peripheral IV Discontinue [OM.PC] Routine 05/05/21 09:00 NIFEdipine [Procardia XL] 60 mg PO DAILY - Plan Plan:: 30yo G3 now P3003 after uncomplicated @ 39w 5d [place] Routine care. Close monitoring of BPs Will continue patient home BP med.
[2021-05-05] MEDS: Docusate Sodium 100 MG Cap PO PRN (17:58)
[2021-05-06] MEDS: NIFEdipine 30 MG Tab.ER PO SCH (09:02)
[2021-05-06] MEDS: Docusate Sodium 100 MG Cap PO PRN (09:07)
--- NOTE | 2021-05-06 13:51 | PCM.PNPP ---
- General Info Date of Service: 05/06/21 Admission Dx/Problem (Free Text): Patient Status Order with Admit Dx/Problem 05/04/21 20:35 Patient Status [ADT] Routine Admission Diagnosis/Problem Admission Diagnosis/Problem Subjective Update: Sallie is a 30 yo current PPD1 S/P uncomplicated to term NBF. B pos, RI, GBS pos without adequate ampicillin prophylaxis prior to . Patient has no complaints or concerns at this time. Patient is breast feeding and pumping + bottle feeding well, resting comfortably in bed with in bassinet. Patient reports she is eating, voiding, ambulating independently and without difficulty. Patient denies any problems or concerns at this time except mild- moderate intermittent uterine cramping relieved with Ibuprofen. 60 mg Procardia XL given orally daily in am. Patient reports scant to small vaginal bleeding with no clots. Patient verbalizes her readiness to be discharged home today. Functional Status: Reports: Pain Controlled, Tolerating Diet, Ambulating, Urinating - Review of Systems General: Reports: No Symptoms HEENT: Reports: No Symptoms Pulmonary: Reports: No Symptoms Cardiovascular: Reports: No Symptoms Gastrointestinal: Reports: No Symptoms Genitourinary: Reports: No Symptoms Musculoskeletal: Reports: No Symptoms Skin: Reports: No Symptoms Neurological: Reports: No Symptoms Psychiatric: Reports: No Symptoms - General Info Date of Service: 05/06/21 - Patient Data Vital Signs - Most Recent: Last Vital Signs Temp 97.3 F 05/06/21 08:00 Pulse 71 05/06/21 08:00 Resp 18 05/06/21 08:00 BP 144/78 H 05/06/21 11:47 Pulse Ox 98 05/06/21 08:00 Weight - Most Recent: 221 lb Lab Results - Last 24 Hours: Laboratory Results - last 24 hr 05/04/21 Range/Units 20:20 RPR Non-Reac (Non-Reac) Med Orders - Current: Current Medications Acetaminophen (Acetaminophen 500 Mg Tab) 500 mg PO Q4H PRN PRN Reason: Pain (mild 1-3) Acetaminophen (Acetaminophen 500 Mg Tab) 1,000 mg PO Q4H PRN PRN Reason: Pain (mild 1-3) Benzocaine/Menthol (Benzocaine/Menthol 20%-0.5% [place] 78 Gm Cannister) 78 gm TOP ASDIRECTED PRN PRN Reason: Perineal Comfort Measure Bisacodyl (Bisacodyl 10 Mg Supp) 10 mg RECTAL ONETIME PRN PRN Reason: Constipation Butorphanol Tartrate (Butorphanol 1 Mg/Ml Sdv) 1 mg IVPUSH Q1H PRN PRN Reason: Pain (severe 7-10) Carboprost Tromethamine (Carboprost Tromethamine 250 Mcg/1 Ml Amp) 250 mcg IM ASDIRECTED PRN PRN Reason: Post Hemorrhage Docusate Sodium (Docusate Sodium 100 Mg Cap) 100 mg PO Q12H PRN PRN Reason: Constipation Last Admin: 05/06/21 09:07 Dose: 100 mg Documented by: Emollient Ointment (Lanolin 100% Cream 7 Gm Tube) 0 gm TOP ASDIRECTED PRN PRN Reason: Sore Nipples Last Admin: 05/05/21 09:15 Dose: 1 applic Documented by: Oxytocin/Sodium Chloride (Oxytocin 30 Unit/500 Ml-Ns) 30 unit in 500 mls @ 500 mls/hr IV TITRATE [facility] Last Infusion: 05/04/21 23:05 Dose: 500 mls/hr Documented by: Tranexamic Acid 1,000 mg/ (Sodium Chloride) 110 mls @ 660 mls/hr IV ONETIME PRN PRN Reason: Bleeding Lactated Ringer's (Ringers, Lactated) 1,000 mls @ 150 mls/hr IV ASDIRECTED [facility] Last Admin: 05/04/21 21:17 Dose: 150 mls/hr Documented by: Ibuprofen (Ibuprofen 400 Mg Tab) 400 mg PO Q4H PRN PRN Reason: Pain (mild 1-3) Ibuprofen (Ibuprofen 800 Mg Tab) 800 mg PO Q6H PRN PRN Reason: Pain (mild 1-3) Last Admin: 05/05/21 23:29 Dose: 800 mg Documented by: Lidocaine HCl (Lidocaine 1% 50 Ml Mdv) 50 ml INJECT ONETIME PRN PRN Reason: Laceration repair Methylergonovine Maleate (Methylergonovine 0.2 Mg/1 Ml Amp) 0.2 mg IM ASDIRECTED PRN PRN Reason: Post Hemorrhage Misoprostol (Misoprostol 200 Mcg Tab) 200 mcg PO ONETIME PRN PRN Reason: Post Hemorrhage Nalbuphine HCl (Nalbuphine 10 Mg/1 Ml Vial) 10 mg IVPUSH Q1H PRN PRN Reason: Pain (severe 7-10) Nifedipine (Nifedipine 30 Mg Tab.Er) 60 mg PO DAILY GRACIELA Last Admin: 05/06/21 09:02 Dose: 60 mg Documented by: Sodium Chloride (Sodium Chloride 0.9% 10 Ml Syringe) 10 ml FLUSH ASDIRECTED PRN PRN Reason: Keep Vein Open Sodium Chloride (Sodium Chloride 0.9% 2.5 Ml Syringe) 2.5 ml FLUSH ASDIRECTED PRN PRN Reason: Keep Vein Open Sodium Chloride (Sodium Chloride 0.9% 10 Ml Sdv) 10 ml IV ASDIRECTED PRN PRN Reason: IV Use Sterile Water (Water For Irrigation,Sterile 1,000 Ml Container) 1,000 ml IRR ASDIRECTED PRN PRN Reason: delivery Witch Maggie (Witch Maggie Medicated Pads 40/Jar) 1 pad TOP ASDIRECTED PRN PRN Reason: comfort care Last Admin: 05/05/21 09:16 Dose: 1 applic Documented by: Discontinued Medications Ampicillin Sodium (Ampicillin 2 Gm Vial) Confirm Administered Dose 2 gm .ROUTE .STK-MED ONE Stop: 05/04/21 20:42 Last Admin: 05/04/21 23:59 Dose: Not Given Documented by: Ampicillin Sodium 2 gm/ Sodium (Chloride) 100 mls @ 200 mls/hr IV ONETIME ONE Stop: 05/04/21 21:04 Last Admin: 05/04/21 20:44 Dose: 200 mls/hr Documented by: Sodium Chloride (Normal Saline) Confirm Administered Dose 100 mls @ as directed .ROUTE .STK-MED ONE Stop: 05/04/21 20:43 Last Admin: 05/04/21 23:59 Dose: Not Given Documented by: Ropivacaine (Naropin 0.2%) Confirm Administered Dose 200 mls @ as directed .ROUTE .STK-MED ONE Stop: 05/04/21 20:44 Last Admin: 05/05/21 10:24 Dose: Not Given Documented by: - Interaction Infant Disposition, : at Bedside Infant Interaction: Not Interacting Feeding: Bottle Fed , Breastfed ; Nursed Well, Continues to B reastfeed, Encouraged to Breastfeed Support Person: - Recovery Exam Fundal Tone: Firm Fundal Level: 2 Fingerbreadths Below Umbilicus Fundal Placement: Midline Lochia Amount: Scant Lochia Color: Rubra/Red Perineum Description: Intact, Minimal Bruising/Swelling Episiotomy/Laceration: Approximated Bladder Status: Voiding Urinary Elimination: Voided - Exam General: Alert, Oriented, Cooperative, No Acute Distress HEENT: Pupils Equal, Pupils Reactive, Mucous Membr. Moist/[place] Neck: Supple Lungs: Clear to Auscultation, Normal Respiratory Effort Cardiovascular: Regular Rate, Regular Rhythm GI/Abdominal Exam: Normal Bowel Sounds, Soft, Non-Tender, No Organomegaly, No Distention Extremities: Normal Inspection, Normal Range of Motion, Non-Tender, No Pedal Edema, Normal Capillary Refill Skin: Warm, Dry, Intact Neurological: No New Focal Deficit Psy/Mental Status: Alert, Normal Affect, Normal Mood - Problem List & Annotations (1) (normal spontaneous vaginal delivery) SNOMED Code(s): 83101859, 670732332 Code(s): O80 - ENCOUNTER FOR FULL-TERM UNCOMPLICATED DELIVERY Status: Acute Priority: High Current Visit: Yes (2) Transient hypertension of SNOMED Code(s): 018049816 Code(s): O13.9 - GESTATIONAL HTN W/O SIGNIFICANT PROTEINURIA, UNSP TRIMESTER Status: Acute Priority: High Current Visit: Yes (3) Lactating mother SNOMED Code(s): 990758853, 429972232 Code(s): Z39.1 - ENCOUNTER FOR CARE AND EXAMINATION OF LACTATING MOTHER Status: Acute Priority: High Current Visit: Yes - Problem List Review Problem List Initiated/Reviewed/Updated: Yes - Plan Plan:: Plan to continue inpatient course. Hemodynamically stable, afebrile; mild elevation in BP treated with 60 mg Procardia XL daily in am. Hemoglobin 10.6, F/U as indicated. Continue PO analgesia as ordered. Continue breast and bottle feeding/pumping, eating, voiding, ambulating independently. Plan to D/C in am pending labs. Dr. Elizondo notified and agreeable with POC.
--- NOTE | 2021-05-06 17:04 | PCM.DCSUM1 ---
Discharge Summary - Hospital Course Free Text/Narrative:: Discharge home with baby. Follow up in the clinic in one week for BP check. Follow up again at 6 weeks for routine visit. Monitor BP daily. Diagnosis: Stroke: No Modified [place] Scale: No Symptoms at All Modified [place] Scale Score: 0 - Discharge Data Discharge Date: 05/06/21 Discharge Disposition: Home, Self-Care 01 Condition: Good - Referral to Home Health Primary Care Physician: PCP None - Patient Instructions Diet: Regular Diet as Tolerated, Drink 8-10+ Glasses/Day Activity: As Tolerated, No Strenuous Activities, Rest and Relax Today Driving: May Drive Today Showering/Bathing: May Shower - Discharge Plan *PRESCRIPTION DRUG MONITORING PROGRAM REVIEWED*: Not Applicable *COPY OF PRESCRIPTION DRUG MONITORING REPORT IN PATIENT LUIS: Not Applicable Prescriptions/Med Rec: Ibuprofen [Motrin] 800 mg PO Q6H PRN #60 tablet PRN Reason: Pain (Mild 1-3) NIFEdipine [Procardia XL] 30 mg PO DAILY PRN #30 tab.er PRN Reason: Hypertension Home Medications: Home Meds NIFEdipine [Procardia XL] 3 tab PO DAILY 02/13/17 [History] Aspirin [Adult Aspirin] 81 mg PO DAILY 01/11/18 [History] Ibuprofen [Motrin] 800 mg PO Q6H PRN #60 tablet 05/06/21 [Rx] NIFEdipine [Procardia XL] 30 mg PO DAILY PRN #30 tab.er 05/06/21 [Rx] Oxygen Therapy Mode: Room Air Referrals: Anamaria Pemberton MD [Physician] - 06/15/21 9:45 am (Arrive 15 minutes prior to your appointment. ) - Discharge Summary/Plan Comment DC Time >30 min.: Yes Total # of Minutes for Discharge Time: n/a - General Info Date of Service: 05/06/21 Functional Status: Reports: Pain Controlled, Tolerating Diet, Ambulating, Urinating - Review of Systems General: Reports: No Symptoms HEENT: Reports: No Symptoms Pulmonary: Reports: No Symptoms Cardiovascular: Reports: No Symptoms Gastrointestinal: Reports: No Symptoms Genitourinary: Reports: No Symptoms Musculoskeletal: Reports: No Symptoms Skin: Reports: No Symptoms Neurological: Reports: No Symptoms Psychiatric: Reports: No Symptoms - Patient Data Vitals - Most Recent: Last Vital Signs Temp 97.7 F 05/06/21 16:00 Pulse 84 05/06/21 16:00 Resp 18 05/06/21 16:00 BP 152/92 H 05/06/21 16:35 Pulse Ox 96 05/06/21 16:00 Weight - Most Recent: 221 lb Lab Results - Last 24 hrs: Laboratory Results - last 24 hr 05/04/21 Range/Units 20:20 RPR Non-Reac (Non-Reac) Med Orders - Current: Current Medications Acetaminophen (Acetaminophen 500 Mg Tab) 500 mg PO Q4H PRN PRN Reason: Pain (mild 1-3) Acetaminophen (Acetaminophen 500 Mg Tab) 1,000 mg PO Q4H PRN PRN Reason: Pain (mild 1-3) Benzocaine/Menthol (Benzocaine/Menthol 20%-0.5% [place] 78 Gm Cannister) 78 gm TOP ASDIRECTED PRN PRN Reason: Perineal Comfort Measure Bisacodyl (Bisacodyl 10 Mg Supp) 10 mg RECTAL ONETIME PRN PRN Reason: Constipation Butorphanol Tartrate (Butorphanol 1 Mg/Ml Sdv) 1 mg IVPUSH Q1H PRN PRN Reason: Pain (severe 7-10) Carboprost Tromethamine (Carboprost Tromethamine 250 Mcg/1 Ml Amp) 250 mcg IM ASDIRECTED PRN PRN Reason: Post Hemorrhage Docusate Sodium (Docusate Sodium 100 Mg Cap) 100 mg PO Q12H PRN PRN Reason: Constipation Last Admin: 05/06/21 09:07 Dose: 100 mg Documented by: Emollient Ointment (Lanolin 100% Cream 7 Gm Tube) 0 gm TOP ASDIRECTED PRN PRN Reason: Sore Nipples Last Admin: 05/05/21 09:15 Dose: 1 applic Documented by: Oxytocin/Sodium Chloride (Oxytocin 30 Unit/500 Ml-Ns) 30 unit in 500 mls @ 500 mls/hr IV TITRATE [facility] Last Infusion: 05/04/21 23:05 Dose: 500 mls/hr Documented by: Tranexamic Acid 1,000 mg/ (Sodium Chloride) 110 mls @ 660 mls/hr IV ONETIME PRN PRN Reason: Bleeding Lactated Ringer's (Ringers, Lactated) 1,000 mls @ 150 mls/hr IV ASDIRECTED [facility] Last Admin: 05/04/21 21:17 Dose: 150 mls/hr Documented by: Ibuprofen (Ibuprofen 400 Mg Tab) 400 mg PO Q4H PRN PRN Reason: Pain (mild 1-3) Ibuprofen (Ibuprofen 800 Mg Tab) 800 mg PO Q6H PRN PRN Reason: Pain (mild 1-3) Last Admin: 05/05/21 23:29 Dose: 800 mg Documented by: Lidocaine HCl (Lidocaine 1% 50 Ml Mdv) 50 ml INJECT ONETIME PRN PRN Reason: Laceration repair Methylergonovine Maleate (Methylergonovine 0.2 Mg/1 Ml Amp) 0.2 mg IM ASDIRECTED PRN PRN Reason: Post Hemorrhage Misoprostol (Misoprostol 200 Mcg Tab) 200 mcg PO ONETIME PRN PRN Reason: Post Hemorrhage Nalbuphine HCl (Nalbuphine 10 Mg/1 Ml Vial) 10 mg IVPUSH Q1H PRN PRN Reason: Pain (severe 7-10) Nifedipine (Nifedipine 30 Mg Tab.Er) 60 mg PO DAILY GRACIELA Last Admin: 05/06/21 09:02 Dose: 60 mg Documented by: Sodium Chloride (Sodium Chloride 0.9% 10 Ml Syringe) 10 ml FLUSH ASDIRECTED PRN PRN Reason: Keep Vein Open Sodium Chloride (Sodium Chloride 0.9% 2.5 Ml Syringe) 2.5 ml FLUSH ASDIRECTED PRN PRN Reason: Keep Vein Open Sodium Chloride (Sodium Chloride 0.9% 10 Ml Sdv) 10 ml IV ASDIRECTED PRN PRN Reason: IV Use Sterile Water (Water For Irrigation,Sterile 1,000 Ml Container) 1,000 ml IRR ASDIRECTED PRN PRN Reason: delivery Witch Maggie (Witch Maggie Medicated Pads 40/Jar) 1 pad TOP ASDIRECTED PRN PRN Reason: comfort care Last Admin: 05/05/21 09:16 Dose: 1 applic Documented by: Discontinued Medications Ampicillin Sodium (Ampicillin 2 Gm Vial) Confirm Administered Dose 2 gm .ROUTE .STK-MED ONE Stop: 05/04/21 20:42 Last Admin: 05/04/21 23:59 Dose: Not Given Documented by: Ampicillin Sodium 2 gm/ Sodium (Chloride) 100 mls @ 200 mls/hr IV ONETIME ONE Stop: 05/04/21 21:04 Last Admin: 05/04/21 20:44 Dose: 200 mls/hr Documented by: Sodium Chloride (Normal Saline) Confirm Administered Dose 100 mls @ as directed .ROUTE .STK-MED ONE Stop: 05/04/21 20:43 Last Admin: 05/04/21 23:59 Dose: Not Given Documented by: Ropivacaine (Naropin 0.2%) Confirm Administered Dose 200 mls @ as directed .ROUTE .[place] ONE Stop: 05/04/21 20:44 Last Admin: 05/05/21 10:24 Dose: Not Given Documented by: - Exam General: Reports: Alert, Oriented, Cooperative, No Acute Distress Lungs: Reports: Normal Respiratory Effort Cardiovascular: Reports: Regular Rate, Regular Rhythm (Female) Exam: Deferred Rectal (Female) Exam: Deferred Neurological: Reports: No New Focal Deficit Psy/Mental Status: Reports: Alert, Normal Affect, Normal Mood
[2021-05-06 19:48] VITALS: BP 151/91; PULSE 90
== END 2021-05-06 20:52 | disposition home or self-care (01) | DRG 560 ==
LOC: MW.OB 20:01 → MW.OBCHECK 20:01 → MW.OB 20:35 → MW.OBCHECK 20:35 → OBSVTOIN 22:37 → MW.OB 05-05 04:10
PROVIDERS: ADMIT Obstetrics & Gynecology Obstetrics; ATTEND Obstetrics & Gynecology Obstetrics
PROC: 10E0XZZ Delivery of Products of Conception, External Approach (ICD-10-PCS; principal; 2021-05-04)
PROC: 10907ZC Drainage of Amniotic Fluid, Therapeutic from Products of Conception, Via Natural or Artificial Opening (ICD-10-PCS; 2021-05-04)
PROC: 3E0R3BZ Introduction of Anesthetic Agent into Spinal Canal, Percutaneous Approach (ICD-10-PCS; 2021-05-04)
DX: O10.92 Unspecified pre-existing hypertension complicating childbirth (principal); O99.824 Streptococcus B carrier state complicating childbirth; Z3A.39 39 weeks gestation of pregnancy; Z37.0 Single live birth; O99.214 Obesity complicating childbirth; Z20.822 Contact with and (suspected) exposure to COVID-19
CPT/HCPCS: 01967; 36415; 85014; 85018; 85027; 86592; 86850; 86900; 86901; A9270-GY; J0290; J2590; J2795; J7120; U0002